=== PATIENT | male | born 1960 | race African-American/Black ===

== ENCOUNTER 2016-10-09 18:22 | Emergency (ER) | payer OTHER, MEDICARE ==
--- NOTE | 2016-10-09 18:31 | ER Document Report ---
ED Medical Screen (RME) - General Stated Complaint: URINARY PROBLEM Time seen by provider: 18:28 Mode of Arrival: Ambulatory Information source: Patient Notes: 56-year-old male presents to ED for blood in his urine starting today. He states he has some blood clots in his urine. States he has pressure with urination denies burning has frequency and urgency. Denies penile discharge. Denies history of kidney stones. States he feels bloated I have greeted and performed a rapid initial assessment of this patient. A comprehensive ED assessment and evaluation of the patient, analysis of test results and completion of medical decision making process will be conducted by an additional ED providers. TRAVEL OUTSIDE OF THE [place] IN LAST 30 DAYS: No - Related Data Allergies/Adverse Reactions: chlorzoxazone [From Parafon Forte] Allergy (Severe, Verified 10/09/16 18:24) Face swelled, couldn't breathe acetaminophen [From Percocet] Allergy (Intermediate, Verified 10/09/16 18:24) Hives oxycodone HCl [From Percocet] Allergy (Unknown, Verified 10/09/16 18:24) Past Medical History - Past Medical History Cardiac Medical History: Reports: Hx Hypertension, Hx Heart Murmur Denies: Hx Congestive Heart Failure, Hx Coronary Artery Disease, Hx Heart Attack Pulmonary Medical History: Reports: Hx Asthma - As a child Denies: Hx Bronchitis, Hx COPD, Hx Pneumonia Neurological Medical History: Denies: Hx Cerebrovascular Accident, Hx Seizures GI Medical History: Musculoskeltal Medical History: Reports Hx Arthritis Infectious Medical History: Past Surgical History: Reports: Hx Orthopedic Surgery - bilateral knee replacement. Denies: Hx Pacemaker - Immunizations Hx Diphtheria, Pertussis, Tetanus Vaccination: Yes
[2016-10-09 18:49] LABS: ABSOLUTE EOSINOPHILS # (AUTO) 0.1 10^3/uL (0.0-0.6); ABSOLUTE MONOCYTES (AUTO) 0.4 10^3/uL (0.1-1.4); ABSOLUTE NEUT (AUTO) 3.4 10^3/uL (1.7-8.2); BASOPHILS % (AUTO) 0.7 % (0-2); HEMATOCRIT 41.6 % (37.9-51.0); HEMOGLOBIN 13.7 g/dL (13.5-17.0); HGB HCT DIFFERENCE -0.5; LYMPHOCYTES % (AUTO) 34.1 % (13-45); MEAN CORPUSCULAR HEMOGLOBIN 28.7 pg (27.0-33.4); MEAN CORPUSCULAR HGB CONC 32.8 g/dL (32.0-36.0); MEAN CORPUSCULAR VOLUME 87 fl (80-97); MONOCYTES % (AUTO) 6.7 % (3-13); RED BLOOD COUNT 4.77 10^6/uL (4.35-5.55); RED CELL DISTRIBUTION WIDTH 14.3 % (11.5-14.0); SEGMENTED NEUTROPHILS % (AUTO) 56.5 % (42-78); WHITE BLOOD COUNT 5.9 10^3/uL (4.0-10.5)
[2016-10-09 19:06] LABS: ALANINE AMINOTRANSFERASE 27 U/L (21-72); ALKALINE PHOSPHATASE 74 U/L (38-126); ANION GAP 11 (5-19); ASPARTATE AMINO TRANSFERASE 21 U/L (17-59); BILIRUBIN,TOTAL 0.3 mg/dL (0.2-1.3); BLOOD UREA NITROGEN 12 mg/dL (7-20); CALCIUM 9.6 mg/dL (8.4-10.2); CARBON DIOXIDE 27 mmol/L (22-30); CHLORIDE 104 mmol/L (98-107); GLUCOSE 216 mg/dL (75-110); POTASSIUM 4.1 mmol/L (3.6-5.0); SODIUM 141.5 mmol/L (137-145); TOTAL PROTEIN 7.1 g/dL (6.3-8.2)
--- NOTE | 2016-10-09 19:33 | ER Document Report ---
ED GI/ - General Chief Complaint: Urinary Problem Stated Complaint: URINARY PROBLEM Time seen by provider: 19:31 Mode of Arrival: Ambulatory Notes: Patient is a 56-year-old male that comes emergency department with chief complaint of blood in his urine that he noticed today, he states he thought he saw a couple of clots in the toilet as well, he states he has some pressure in his lower belly. He denies flank pain, nausea or vomiting, fever or chills, painful urination. Patient states he has been evaluated by urology in the past for microscopic hematuria and had imaging which was normal, denies history of kidney stones, he is treated for BPH with Flomax. He smokes. Past medical history of type II diabetes. TRAVEL OUTSIDE OF THE [place] IN LAST 30 DAYS: No - Related Data Allergies/Adverse Reactions: chlorzoxazone [From Parafon Forte] Allergy (Severe, Verified 10/09/16 18:24) Face swelled, couldn't breathe acetaminophen [From Percocet] Allergy (Intermediate, Verified 10/09/16 18:24) Hives oxycodone HCl [From Percocet] Allergy (Unknown, Verified 10/09/16 18:24) Past Medical History - General Information source: Patient - Social History Smoking Status: Current Every Day Smoker Smoking Education Provided: Yes - <3 min Frequency of alcohol use: None Drug Abuse: None Lives with: Family Family History: Reviewed & Not Pertinent Patient has suicidal ideation: No Patient has homicidal ideation: No - Past Medical History Cardiac Medical History: Reports: Hx Hypercholesterolemia, Hx Hypertension, Hx Heart Murmur Denies: Hx Congestive Heart Failure, Hx Coronary Artery Disease, Hx Heart Attack Pulmonary Medical History: Reports: Hx Asthma - As a child Denies: Hx Bronchitis, Hx COPD, Hx Pneumonia Neurological Medical History: Denies: Hx Cerebrovascular Accident, Hx Seizures Endocrine Medical History: Reports: Hx Diabetes Mellitus Type 2 Renal/ Medical History: Denies: Hx Peritoneal Dialysis GI Medical History: Musculoskeltal Medical History: Reports Hx Arthritis Infectious Medical History: Past Surgical History: Reports: Hx Orthopedic Surgery - bilateral knee replacement. Denies: Hx Pacemaker - Immunizations Hx Diphtheria, Pertussis, Tetanus Vaccination: Yes Hx Pneumococcal Vaccination: 05/26/10 Review of Systems - Review of Systems Constitutional: No symptoms reported EENT: No symptoms reported Cardiovascular: No symptoms reported Respiratory: No symptoms reported Gastrointestinal: No symptoms reported Genitourinary: See HPI Male Genitourinary: No symptoms reported Musculoskeletal: No symptoms reported Skin: No symptoms reported Hematologic/Lymphatic: No symptoms reported Neurological/Psychological: No symptoms reported Physical Exam - Vital signs Vitals: Temp Pulse Resp BP Pulse Ox 97.7 F 105 H 20 172/95 H 96 10/09/16 18:29 10/09/16 18:29 10/09/16 18:29 10/09/16 18:29 10/09/16 18:29 Interpretation: Normal - General General appearance: Appears well, Alert In distress: None - HEENT Head: Normocephalic, Atraumatic Eyes: Normal Conjunctiva: Normal Extraocular movements intact: Yes Eyelashes: Normal Pupils: PERRL Nasal: Normal Mouth/Lips: Normal Mucous membranes: Normal Pharynx: Normal Neck: Normal - Respiratory Respiratory status: No respiratory distress Chest status: Nontender Breath sounds: Normal. No: Decreased air movement, Wheezing Chest palpation: Normal - Cardiovascular Rhythm: Regular. No: Tachycardia - No tachycardia on my exam Heart sounds: Normal auscultation, S1 appreciated, S2 appreciated Murmur: No - Abdominal Inspection: Normal Distension: No distension Bowel sounds: Normal Tenderness: Tender - Very slight generalized lower abdominal discomfort, no significant tenderness, no guarding - Back Back: Normal, Nontender. No: CVA tenderness - Extremities General upper extremity: Normal inspection, Nontender, Normal color, Normal ROM , Normal temperature General lower extremity: Normal inspection, Nontender, Normal color, Normal ROM , Normal temperature, Normal weight bearing. 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 No fever. CBC unremarkable, chemistry generally unremarkable with only mildly elevated glucose, bicarbonate and anion gap are normal, urinalysis shows what appears to be large amount of hematuria with no nitrates or evidence of infection. I discussed with patient, patient states he has not had a CAT scan to evaluate for stones or other abnormality. This was performed after discussion, discussed with Dr. Davenport per [facility] guidelines. No ureterolithiasis, renal cysts , masses, or other abnormalities are seen. Patient heart he has a urologist, patient was given a copy of his CD and report, discussed with patient in detail , patient states that he will follow-up closely and will likely have a cystoscopy for additional evaluation (patient is a smoker, concern for bladder cancer, informed patient of this and he states understanding and that he will follow-up closely). Patient hypertensive, however he states he forgot to take his blood pressure medication today, denies headache, chest pain, difficulty urinating. States he will take it at home. - Vital Signs Vital signs: Temp Pulse Resp BP Pulse Ox 97.7 F 87 16 153/100 H 95 10/09/16 22:27 10/09/16 22:27 10/09/16 22:27 10/09/16 22:27 10/09/16 22:27 - Laboratory Result Diagrams: 10/09/16 18:36 10/09/16 18:36 Laboratory results interpreted by me: 10/09/16 10/09/16 10/09/16 18:36 18:36 18:36 RDW 14.3 H Glucose 216 H Urine Protein 30 H Urine Glucose (UA) 50 H Urine Blood LARGE H Discharge - Discharge Clinical Impression: Hematuria Condition: Stable Disposition: HOME, SELF-CARE Additional Instructions: CAT scan imaging shows no abnormalities, no infection is seen, a urine culture has been sent. Because of the lower abdominal discomfort, increase in bleeding, and no other source of bleeding found, please follow-up very closely with your urologist for additional management/screening. Return to the emergency department for any concerning or worsening symptoms including fever, vomiting, dizziness, etc. Referrals: DIXIE LIND MD [Primary Care Provider] - Follow up as needed
[2016-10-09 19:35] LABS: APPEARANCE,URINE CLOUDY; BILIRUBIN,URINE NEGATIVE (NEGATIVE); GLUCOSE, URINE 50 mg/dL (NEGATIVE); KETONES,URINE NEGATIVE (NEGATIVE); LEUKOCYTE ESTERASE,URINE NEGATIVE (NEGATIVE); NITRITE,URINE NEGATIVE (NEGATIVE); PROTEIN,URINE 30 mg/dL (NEGATIVE); UROBILINOGEN,URINE NEGATIVE mg/dL (<2.0)
[2016-10-09 22:31] VITALS: BP 153/100
== END 2016-10-09 22:29 | disposition home or self-care (01) ==
LOC: ER 18:22
DX: R31.0 Gross hematuria (principal); R19.8 Other specified symptoms and signs involving the digestive system and abdomen; N40.0 Benign prostatic hyperplasia without lower urinary tract symptoms; E11.9 Type 2 diabetes mellitus without complications; I10 Essential (primary) hypertension; F17.200 Nicotine dependence, unspecified, uncomplicated; Z71.6 Tobacco abuse counseling; Z88.5 Allergy status to narcotic agent; Z88.8 Allergy status to other drugs, medicaments and biological substances; Z79.899 Other long term (current) drug therapy
CPT/HCPCS: 36415; 76380; 80053; 81001; 85025; 87086; 99284

== ENCOUNTER 2016-10-13 11:13 | Emergency (ER) | payer MEDICARE ==
--- NOTE | 2016-10-13 11:22 | ER Document Report ---
ED Medical Screen (RME) - General Stated Complaint: COUGH Mode of Arrival: Ambulatory Information source: Patient Notes: Patient complains of cough and fever with rib pain. Patient complains of chest and generalized abdominal tenderness. Temperature as high as 101. Cough started yesterday. hx: Diabetes, hypertension, dyslipidemia, COPD, asthma I have greeted and performed a rapid initial assessment of this patient. A comprehensive ED assessment and evaluation of the patient, analysis of test results and completion of the medical decision making process will be conducted by additional ED providers. TRAVEL OUTSIDE OF THE [place] IN LAST 30 DAYS: No - Related Data Allergies/Adverse Reactions: chlorzoxazone [From Parafon Forte] Allergy (Severe, Verified 10/13/16 11:18) Face swelled, couldn't breathe acetaminophen [From Percocet] Allergy (Intermediate, Verified 10/13/16 11:18) Hives oxycodone HCl [From Percocet] Allergy (Unknown, Verified 10/13/16 11:18) Past Medical History - Past Medical History Cardiac Medical History: Reports: Hx Hypercholesterolemia, Hx Hypertension, Hx Heart Murmur Denies: Hx Congestive Heart Failure, Hx Coronary Artery Disease, Hx Heart Attack Pulmonary Medical History: Reports: Hx Asthma - As a child Denies: Hx Bronchitis, Hx COPD, Hx Pneumonia Neurological Medical History: Denies: Hx Cerebrovascular Accident, Hx Seizures Endocrine Medical History: Reports: Hx Diabetes Mellitus Type 2 Renal/ Medical History: Denies: Hx Peritoneal Dialysis GI Medical History: Musculoskeltal Medical History: Reports Hx Arthritis Infectious Medical History: Past Surgical History: Reports: Hx Orthopedic Surgery - bilateral knee replacement. Denies: Hx Pacemaker - Immunizations Hx Diphtheria, Pertussis, Tetanus Vaccination: Yes Physical Exam - Respiratory Respiratory status: No respiratory distress Breath sounds: Nonproductive cough
--- NOTE | 2016-10-13 11:46 | ER Document Report ---
ED General - General Chief Complaint: Cough Stated Complaint: COUGH Time seen by provider: 11:46 Mode of Arrival: Ambulatory Information source: Patient TRAVEL OUTSIDE OF THE [place] IN LAST 30 DAYS: No - HPI Patient complains to provider of: COUGH, CONGESTION, FEVER Onset: Other - SATURDAY Onset/Duration: Gradual, Worse Quality of pain: Achy Severity: Moderate Pain Level: 4 Context: Patient states that his cold symptoms actually started this past Saturday. He has been running a fever, and states his symptoms have been worse since . States his upper abdomen hurts from coughing so much. Patient states he has a history of asthma, COPD, hypertension, diabetes type II, and pneumonia. He has a current smoker. He did not receive a flu shot this year. Patient denies chest pain, except with coughing. Associated symptoms: Chills, Nonproductive cough, Fever, Hurts to breath, Shortness of breath, Other - UPPER ABD PAIN FROM COUGHING. denies: Chest pain, Diarrhea, Nausea, Vomiting Exacerbated by: Coughing Relieved by: Denies Similar symptoms previously: Yes - HX PNEUMONIA Recently seen / treated by doctor: No Notes: When discussing in further detail patient's history due to elevated CK, patient admits to taking statins. He states that he has been having muscle cramps for the last 3 weeks. He also admits to having a history of sleep apnea in which he is not wearing his CPAP. Again patient denies he is having chest pain. He does state that he had episodes of chest pain about 3 years ago. And underwent a stress test [place]. He states that he is a former cocaine user, quit about 8 or 9 years ago, and was put on carvedilol to help control his heart rate - Related Data Allergies/Adverse Reactions: chlorzoxazone [From Parafon Forte] Allergy (Severe, Verified 10/13/16 11:18) Face swelled, couldn't breathe acetaminophen [From Percocet] Allergy (Intermediate, Verified 10/13/16 11:18) Hives oxycodone HCl [From Percocet] Allergy (Unknown, Verified 10/13/16 11:18) Home Medications: Current Home Medications Aspirin [Aspirin EC] 2 tab PO DAILY 10/13/16 [History] Finasteride [Finasteride] 1 tab PO DAILY 10/13/16 [History] Lisinopril 20 mg PO DAILY 10/13/16 [History] Tamsulosin HCl [Flomax] 0.4 mg PO DAILY 10/13/16 [History] Past Medical History - General Information source: Patient - Social History Smoking Status: Current Every Day Smoker Chew tobacco use (# tins/day): No Frequency of alcohol use: None Drug Abuse: None Lives with: Spouse/Significant other Family History: Reviewed & Not Pertinent Patient has suicidal ideation: No Patient has homicidal ideation: No - Past Medical History Cardiac Medical History: Reports: Hx Hypercholesterolemia, Hx Hypertension, Hx Heart Murmur Pulmonary Medical History: Reports: Hx Asthma - As a child, Hx COPD, Hx Pneumonia, Hx Sleep Apnea Endocrine Medical History: Reports: Hx Diabetes Mellitus Type 2 GI Medical History: Musculoskeltal Medical History: Reports Hx Arthritis Infectious Medical History: Past Surgical History: Reports: Hx Orthopedic Surgery - bilateral knee replacement - Immunizations Hx Diphtheria, Pertussis, Tetanus Vaccination: Yes Hx Pneumococcal Vaccination: 05/26/10 Review of Systems - Review of Systems Constitutional: See HPI EENT: See HPI Cardiovascular: No symptoms reported Respiratory: See HPI Gastrointestinal: See HPI Genitourinary: No symptoms reported Male Genitourinary: No symptoms reported Musculoskeletal: No symptoms reported Skin: No symptoms reported Hematologic/Lymphatic: No symptoms reported Neurological/Psychological: No symptoms reported -: Yes All other systems reviewed and negative Physical Exam - Vital signs Vitals: Temp Pulse Resp BP Pulse Ox 98.9 F 107 H 18 175/126 H 95 10/13/16 11:20 10/13/16 11:20 10/13/16 11:20 10/13/16 11:20 10/13/16 11:20 - General General appearance: Appears well, Alert In distress: None - HEENT Head: Normocephalic Eyes: Normal Conjunctiva: Normal Pharynx: Normal Neck: Normal - Respiratory Respiratory status: No respiratory distress Breath sounds: Decreased air movement, Wheezing - Cardiovascular Rhythm: Regular Heart sounds: Normal auscultation - Abdominal Inspection: Normal Bowel sounds: Normal Tenderness: Tender - UPPER ABDOMINAL MUSCLES - Back Back: Normal, Nontender - Extremities General upper extremity: Normal inspection General lower extremity: Normal inspection - Neurological Neuro grossly intact: Yes Cognition: Normal - Psychological Associated symptoms: Normal affect, Normal mood - Skin Skin Temperature: Warm Skin Moisture: Dry Skin Color: Normal Course - Re-evaluation Re-evalutation: 10/13/16 16:[address] SIN. REVIEWED PTS HX, LABS, AND OTHER TESTS. ADVISED THAT PATIENT STOP STATIN, PUSH FLUIDS, FOLLOW UP WITH PCP NEXT WEEK FOR RECHECK OF LABS OR RETURN TO ER IF NOT FEELING ANY BETTER. 10/13/16 16:58 Patient reevaluated at this time. Denies chest pain. Informed of plan of care , agrees to stop statins, and [facility] Patient also agrees to return to the ER for worsening symptoms or if no improvement in the next couple of days. - Vital Signs Vital signs: Temp Pulse Resp BP Pulse Ox 98.9 F 107 H 27 H 135/83 H 96 10/13/16 11:20 10/13/16 11:20 10/13/16 16:01 10/13/16 15:01 10/13/16 16:01 - Laboratory Result Diagrams: 10/13/16 12:50 10/13/16 12:50 Laboratory results interpreted by me: 10/13/16 10/13/16 10/13/16 12:50 12:50 14:00 RDW 14.1 H Seg Neutrophils % 79.1 H Lymphocytes % 11.5 L Glucose 142 H Creatine Kinase 1486 H Urine Blood MODERATE H Discharge - Discharge Clinical Impression: Cough Fever Qualifiers: Fever type: unspecified Qualified Code(s): R50.9 - Fever, unspecified Rhabdomyolysis Qualifiers: Rhabdomyolysis type: non-traumatic Qualified Code(s): M62.82 - Rhabdomyolysis Condition: Good Disposition: HOME, SELF-CARE Additional Instructions: Stop statin as discussed. Follow-up [place] [facility] the first of this coming week for recheck. Drink lots of water until [facility] Take antibiotics as prescribed. Albuterol inhaler every 4 hours for the next 2 days, then every 4 hours as needed for cough. Continue Symbicort twice daily as prescribed. Steroids twice daily for 3 days. Monitor blood sugar closely. [id number] sugar-free cough suppressants as needed. Return to the emergency room for worsening symptoms, or if not better in the next couple of days. Prescriptions: Doxycycline Hyclate 100 mg PO BID #20 tablet Hydrocodone/Acetaminophen [Sublette 5-325 mg Tablet] 1 tab PO Q6H #15 tablet Prednisone 20 mg PO BID #6 tablet Referrals: DIXIE LIND MD [Primary Care Provider] - Follow up as needed
[2016-10-13] MEDS ORDERED: ALBUTEROL SULFATE 0.083% NEB 2.5 MG/3 ML AMPUL NEB ONE (11:56)
[2016-10-13 13:12] LABS: HEMATOCRIT 41.8 % (37.9-51.0); HEMOGLOBIN 13.7 g/dL (13.5-17.0); HGB HCT DIFFERENCE -0.7; MEAN CORPUSCULAR HEMOGLOBIN 28.3 pg (27.0-33.4); MEAN CORPUSCULAR HGB CONC 32.7 g/dL (32.0-36.0); MEAN CORPUSCULAR VOLUME 87 fl (80-97); RED BLOOD COUNT 4.82 10^6/uL (4.35-5.55); RED CELL DISTRIBUTION WIDTH 14.1 % (11.5-14.0)
[2016-10-13 13:13] LABS: ABSOLUTE LYMPHOCYTES (AUTO) 0.7 10^3/uL (0.5-4.7); ABSOLUTE MONOCYTES (AUTO) 0.5 10^3/uL (0.1-1.4); ABSOLUTE NEUT (AUTO) 4.7 10^3/uL (1.7-8.2); BASOPHILS % (AUTO) 0.5 % (0-2); EOSINOPHILS % (AUTO) 0.5 % (0-6); LYMPHOCYTES % (AUTO) 11.5 % (13-45); MONOCYTES % (AUTO) 8.4 % (3-13); SEGMENTED NEUTROPHILS % (AUTO) 79.1 % (42-78)
[2016-10-13] MEDS ORDERED: HYDROCODONE/ACETAMINOPHEN 5-325 MG TABLET PO ONE (13:13)
[2016-10-13 13:47] LABS: CREATINE KINASE MB 1.25 ng/mL (<4.55); TROPONIN I < 0.012 ng/mL
[2016-10-13 14:00] LABS: ALANINE AMINOTRANSFERASE 29 U/L (21-72); ALBUMIN 3.8 g/dL (3.5-5.0); ALKALINE PHOSPHATASE 59 U/L (38-126); ANION GAP 11 (5-19); ASPARTATE AMINO TRANSFERASE 32 U/L (17-59); BILIRUBIN,TOTAL 0.5 mg/dL (0.2-1.3); BLOOD UREA NITROGEN 9 mg/dL (7-20); CALCIUM 9.2 mg/dL (8.4-10.2); CARBON DIOXIDE 25 mmol/L (22-30); CHLORIDE 103 mmol/L (98-107); CREATINE KINASE 1486 U/L (55-170); CREATININE RESULT 0.85 mg/dL (0.52-1.25); GLUCOSE 142 mg/dL (75-110); SODIUM 138.6 mmol/L (137-145); TOTAL PROTEIN 6.8 g/dL (6.3-8.2)
[2016-10-13] MEDS ORDERED: NORMAL SALINE 1000 ML 1,000 ML IV ONE (14:42)
[2016-10-13 14:48] LABS: APPEARANCE,URINE CLEAR; BILIRUBIN,URINE NEGATIVE (NEGATIVE); GLUCOSE, URINE NEGATIVE (NEGATIVE); KETONES,URINE NEGATIVE (NEGATIVE); LEUKOCYTE ESTERASE,URINE NEGATIVE (NEGATIVE); NITRITE,URINE NEGATIVE (NEGATIVE); PROTEIN,URINE NEGATIVE (NEGATIVE); URINE SPECIFIC GRAVITY 1.006; UROBILINOGEN,URINE NEGATIVE mg/dL (<2.0)
[2016-10-13] MEDS ORDERED: CEFTRIAXONE 1 GM/D5W RTU 50 ML IV ONE (16:13)
[2016-10-13] MEDS ORDERED: IPRATROPIUM/ALBUTEROL 0.5-2.5 MG/3 ML AMPUL NEB ONE (16:14)
[2016-10-13 17:17] VITALS: BP 118/72
[2016-10-13] MEDS ORDERED: ACETAMINOPHEN 325 MG TABLET PO ONE (17:25)
--- NOTE | 2016-10-13 18:39 | EKG REPORT ---
SEVERITY:- ABNORMAL ECG - SINUS TACHYCARDIA NONSPECIFIC T ABNORMALITIES, LATERAL LEADS : Confirmed by: Karla Galdamez 13-Oct-2016 18:38:57
== END 2016-10-13 17:36 | disposition home or self-care (01) ==
LOC: ER 11:13
DX: M62.82 Rhabdomyolysis (principal); R05 Cough; R50.9 Fever, unspecified; R09.81 Nasal congestion; F17.210 Nicotine dependence, cigarettes, uncomplicated; Z79.899 Other long term (current) drug therapy
CPT/HCPCS: 93005; 94640 ×2; 99284; 96365; 36415; 82553; 82550; 83690; 85025; 80053; 81001; 84484; 87804; 71020; 93010; A9270 ×4; J7030; J0696; J7620

== ENCOUNTER → 2016-10-16 | Outpatient (CLI) | payer MEDICARE | LOC: RAD 08:13 | PROVIDERS: ATTEND Urology | DX: R31.0 Gross hematuria (principal) | CPT/HCPCS: 74177 ==

== ENCOUNTER 2016-11-13 18:19 | Observation (INO) | payer OTHER, MEDICARE ==
--- NOTE | 2016-11-13 18:36 | ER Document Report ---
ED Medical Screen (RME) - General Stated Complaint: CHEST PAIN Notes: Patient complains of midsternal chest pain for 4-5 days. Feels like he has to burp but can't. No nausea or vomiting, no shortness of breath. No pain radiation. Patient states he has an irregular heartbeat. Patient has history of hypertension and high cholesterol. Patient is also diabetic, he is scheduled for hernia repair surgery on Saturday. Patient usually takes (2) 81 mg aspirin per day, but stopped it yesterday for his impending surgery. No aspirin given an RME. I have greeted and performed a rapid initial assessment of this patient. A comprehensive ED assessment and evaluation of the patient, analysis of test results and completion of the medical decision making process will be conducted by additional ED providers. TRAVEL OUTSIDE OF THE [place] IN LAST 30 DAYS: No - Related Data Allergies/Adverse Reactions: chlorzoxazone [From Parafon Forte] Allergy (Severe, Verified 11/13/16 18:34) Face swelled, couldn't breathe acetaminophen [From Percocet] Allergy (Intermediate, Verified 11/13/16 18:34) Hives oxycodone HCl [From Percocet] Allergy (Unknown, Verified 11/13/16 18:34) Past Medical History - Past Medical History Cardiac Medical History: Reports: Hx Hypercholesterolemia, Hx Hypertension, Hx Heart Murmur Denies: Hx Congestive Heart Failure, Hx Coronary Artery Disease, Hx Heart Attack Pulmonary Medical History: Reports: Hx Asthma - As a child, Hx COPD, Hx Pneumonia, Hx Sleep Apnea Denies: Hx Bronchitis Neurological Medical History: Denies: Hx Cerebrovascular Accident, Hx Seizures Endocrine Medical History: Reports: Hx Diabetes Mellitus Type 2 Renal/ Medical History: Denies: Hx Peritoneal Dialysis GI Medical History: Musculoskeltal Medical History: Reports Hx Arthritis Infectious Medical History: Past Surgical History: Reports: Hx Orthopedic Surgery - bilateral knee replacement. Denies: Hx Pacemaker - Immunizations Hx Diphtheria, Pertussis, Tetanus Vaccination: Yes Physical Exam - Vital signs Vitals: Temp Pulse Resp BP Pulse Ox 98.9 F 101 H 16 158/93 H 96 11/13/16 18:31 11/13/16 18:31 11/13/16 18:31 11/13/16 18:31 11/13/16 18:31 - Cardiovascular Rhythm: Regular Heart sounds: Normal auscultation Course - Vital Signs Vital signs: Temp Pulse Resp BP Pulse Ox 98.9 F 101 H 16 158/93 H 96 11/13/16 18:31 11/13/16 18:31 11/13/16 18:31 11/13/16 18:31 11/13/16 18:31
[2016-11-13 19:04] LABS: PROTHROMBIN TIME 12.8 SEC (11.4-15.4)
[2016-11-13 19:06] LABS: APPEARANCE,URINE CLEAR; BILIRUBIN,URINE NEGATIVE (NEGATIVE); GLUCOSE, URINE 150 mg/dL (NEGATIVE); KETONES,URINE TRACE mg/dL (NEGATIVE); LEUKOCYTE ESTERASE,URINE NEGATIVE (NEGATIVE); NITRITE,URINE NEGATIVE (NEGATIVE); PROTEIN,URINE NEGATIVE (NEGATIVE); URINE SPECIFIC GRAVITY 1.018; UROBILINOGEN,URINE NEGATIVE mg/dL (<2.0)
[2016-11-13 19:09] LABS: ABSOLUTE BASOPHILS # (AUTO) 0.1 10^3/uL (0.0-0.2); ABSOLUTE EOSINOPHILS # (AUTO) 0.2 10^3/uL (0.0-0.6); ABSOLUTE MONOCYTES (AUTO) 0.9 10^3/uL (0.1-1.4); ABSOLUTE NEUT (AUTO) 6.8 10^3/uL (1.7-8.2); BASOPHILS % (AUTO) 0.6 % (0-2); EOSINOPHILS % (AUTO) 1.8 % (0-6); HEMATOCRIT 38.7 % (37.9-51.0); HEMOGLOBIN 13.1 g/dL (13.5-17.0); HGB HCT DIFFERENCE 0.6; LYMPHOCYTES % (AUTO) 20.1 % (13-45); MEAN CORPUSCULAR HGB CONC 33.8 g/dL (32.0-36.0); MEAN CORPUSCULAR VOLUME 86 fl (80-97); MONOCYTES % (AUTO) 8.7 % (3-13); RED BLOOD COUNT 4.51 10^6/uL (4.35-5.55); RED CELL DISTRIBUTION WIDTH 14.3 % (11.5-14.0); SEGMENTED NEUTROPHILS % (AUTO) 68.8 % (42-78); WHITE BLOOD COUNT 9.9 10^3/uL (4.0-10.5)
[2016-11-13 19:18] LABS: ALANINE AMINOTRANSFERASE 21 U/L (21-72); ALBUMIN 4.1 g/dL (3.5-5.0); ALKALINE PHOSPHATASE 74 U/L (38-126); ANION GAP 14 (5-19); ASPARTATE AMINO TRANSFERASE 21 U/L (17-59); BILIRUBIN,DIRECT 0.2 mg/dL (0.0-0.4); BILIRUBIN,TOTAL 0.3 mg/dL (0.2-1.3); BLOOD UREA NITROGEN 17 mg/dL (7-20); CALCIUM 9.4 mg/dL (8.4-10.2); CARBON DIOXIDE 22 mmol/L (22-30); CHLORIDE 110 mmol/L (98-107); CREATINE KINASE 279 U/L (55-170); CREATININE RESULT 0.93 mg/dL (0.52-1.25); GLUCOSE 114 mg/dL (75-110); LIPASE 113.3 U/L (23-300); POTASSIUM 4.2 mmol/L (3.6-5.0); SODIUM 146.3 mmol/L (137-145); TOTAL PROTEIN 6.7 g/dL (6.3-8.2)
[2016-11-13 19:29] LABS: CREATINE KINASE MB 1.45 ng/mL (<4.55)
[2016-11-13 19:30] LABS: TROPONIN I < 0.012 ng/mL
--- NOTE | 2016-11-13 20:57 | ER Document Report ---
ED Cardiac - General Mode of Arrival: Ambulatory Information source: Patient TRAVEL OUTSIDE OF THE [place] IN LAST 30 DAYS: No - HPI Patient complains to provider of: Chest tightness - "pressure" Chest pain location: Substernal Chest pain radiation location: None Cardiac risk factors: Diabetes, Hypertension. denies: Hx RI Associated symptoms: Other - See HPI Exacerbated by: Denies Relieved by: Nothing <SLADE ARIAS - Last Filed: 11/13/16 21:30> <MARIA T BATISTA - Last Filed: 11/13/16 22:33> - General Chief Complaint: Chest Pain Stated Complaint: CHEST PAIN Notes: 56 year old male with history of diabetes, hypertension, arrhythmia, and COPD presents to the ED complaining of intermittent substernal pressure which does not radiate that started 4-5 days ago. Patient reports that it feels like if he "burped" he would relieve the pressure. Patient explains that the pressure was worse when waiting for a room, but is not less severe. Patient explains that these intermittent episodes will often last hours at a time. Patient reports that nothing makes it worse or better and he has not noticed any change with breathing. Patient denies any nausea. Patient has had two stress tests performed in the past, but it has been "a while." Patient usually takes aspirin , but has since stopped taking it because of scheduled surgery in 3 days for hiatal and umbilical hernia repair. Patient's primary care provider is Dr. Gilliland. (SLADE ARIAS) - Related Data Allergies/Adverse Reactions: chlorzoxazone [From Parafon Forte] Allergy (Severe, Verified 11/13/16 18:34) Face swelled, couldn't breathe acetaminophen [From Percocet] Allergy (Intermediate, Verified 11/13/16 18:34) Hives oxycodone HCl [From Percocet] Allergy (Unknown, Verified 11/13/16 18:34) Home Medications: Current Home Medications Hydrocodone/Acetaminophen [[place] 5-325 mg Tablet] 1 tab PO TIDP PRN 11/13/16 [ History] Ramipril [Ramipril] 10 mg PO DAILY 11/13/16 [History] Past Medical History - General Information source: Patient - Social History Smoking Status: Current Every Day Smoker Chew tobacco use (# tins/day): No Frequency of alcohol use: None Drug Abuse: None Family History: Reviewed & Not Pertinent Patient has suicidal ideation: No Patient has homicidal ideation: No - Past Medical History Cardiac Medical History: Reports: Hx Hypercholesterolemia, Hx Hypertension, Hx Heart Murmur, Other - arrythmia Pulmonary Medical History: Reports: Hx Asthma - As a child, Hx COPD, Hx Pneumonia, Hx Sleep Apnea Endocrine Medical History: Reports: Hx Diabetes Mellitus Type 2 Renal/ Medical History: Denies: Hx Peritoneal Dialysis GI Medical History: Musculoskeltal Medical History: Reports Hx Arthritis Infectious Medical History: Past Surgical History: Reports: Hx Orthopedic Surgery - bilateral knee replacement - Immunizations Hx Diphtheria, Pertussis, Tetanus Vaccination: Yes Hx Pneumococcal Vaccination: 05/26/10 <SLADE ARIAS - Last Filed: 11/13/16 21:30> Review of Systems - Review of Systems Constitutional: No symptoms reported EENT: No symptoms reported Cardiovascular: See HPI, Chest pain - "pressure" Respiratory: No symptoms reported Gastrointestinal: No symptoms reported. denies: Nausea Genitourinary: No symptoms reported Male Genitourinary: No symptoms reported Musculoskeletal: No symptoms reported Skin: No symptoms reported Hematologic/Lymphatic: No symptoms reported Neurological/Psychological: No symptoms reported -: Yes All other systems reviewed and negative <SLADE ARIAS - Last Filed: 11/13/16 21:30> Physical Exam - General General appearance: Alert In distress: None - HEENT Head: Normocephalic, Atraumatic Eyes: Normal Extraocular movements intact: Yes Pupils: PERRL - Respiratory Respiratory status: No respiratory distress Chest status: Tender Breath sounds: Normal Chest palpation: Tender - reproducible chest wall tenderness to palpation - Cardiovascular Rhythm: Regular Heart sounds: Normal auscultation - Abdominal Inspection: Normal Distension: No distension Bowel sounds: Normal Tenderness: Nontender. No: Doshi's sign - Back Back: Normal - Extremities General upper extremity: Normal inspection, Normal ROM General lower extremity: Normal inspection, Edema - trace pitting edema, Normal ROM - Neurological Neuro grossly intact: Yes Cognition: Normal Orientation: AAOx4 Maria De Jesus Coma Scale Eye Opening: Spontaneous Mcmillan Coma Scale Verbal: Oriented Mcmillan Coma Scale Motor: Obeys Commands Mcmillan Coma Scale Total: 15 Speech: Normal - Psychological Associated symptoms: Normal affect, Normal mood - Skin Skin Temperature: Warm Skin Moisture: Dry Skin Color: Normal <SLADE ARIAS - Last Filed: 11/13/16 21:30> Course - Laboratory Result Diagrams: 11/13/16 18:40 11/13/16 18:40 <SLADE ARIAS - Last Filed: 11/13/16 21:30> - Laboratory Result Diagrams: 11/13/16 18:40 11/13/16 18:40 - EKG Interpretation by Me EKG shows normal: Sinus rhythm Rate: Tachycardia [place]/QRS: No: IVCD Heart block present: No: 1st Degree, Mobitz 1, Mobitz 2, CHB (3rd degree block) <MARIA T BATISTA - Last Filed: 11/13/16 22:33> - Vital Signs Vital signs: Temp Pulse Resp BP Pulse Ox 98.9 F 101 H 16 135/80 H 97 11/13/16 18:31 11/13/16 18:31 11/13/16 20:34 11/13/16 20:34 11/13/16 20:34 - Laboratory Laboratory results interpreted by me: 11/13/16 11/13/16 11/13/16 18:40 18:40 18:40 Hgb 13.1 L RDW 14.3 H Sodium 146.3 H Chloride 110 H Glucose 114 H Creatine Kinase 279 H Urine Glucose (UA) 150 H Urine Ketones TRACE H Urine Blood SMALL H - EKG Interpretation by Me Additional EKG results interpreted by me: 11/13/16 21:[address]/T flattening (MARIA T BATISTA) Discharge <SLADE ARIAS - Last Filed: 11/13/16 21:30> - Discharge Admitting Provider: [facility] Unit Admitted: Telemetry <MARIA T BATISTA - Last Filed: 11/13/16 22:33> - Discharge Clinical Impression: Chest pain Condition: Fair Disposition: ADMITTED OBSERVATION Scribe Attestation: 11/13/16 22:32 I personally performed the services described in the documentation, reviewed and edited the documentation which was dictated to the scribe in my presence, and it accurately records my words and actions. (MARIA T BATISTA) Scribe Documentation - Scribe Written by Scribe:: Fredy Pritchett, [id number] acting as scribe for :: Mirlande <SLADE ARIAS - Last Filed: 11/13/16 21:30>
[2016-11-13] MEDS ORDERED: NITROGLYCERIN 2% OINTMENT 1 GM PACKET TP ONE (21:11)
[2016-11-13 22:17] LABS: URINE BARBITURATES SCREEN NEGATIVE; URINE METHADONE SCREEN NEGATIVE; URINE OPIATES LOW NEGATIVE; URINE PHENCYCLIDINE SCREEN NEGATIVE
[2016-11-14] MEDS ORDERED: DEXTROSE 40% GEL 15 GM TUBE X 2 PO PRN (01:00)
[2016-11-14] MEDS ORDERED: DEXTROSE 40% GEL 15 GM TUBE PO PRN (01:00)
[2016-11-14] MEDS ORDERED: DEXTROSE 50%-WATER SYRINGE 12.5 GM/25 ML DOSE IV PRN (01:00)
[2016-11-14] MEDS ORDERED: GLUCAGON,HUMAN RECOMB 1 MG INJ IM PRN (01:00)
[2016-11-14] MEDS ORDERED: INSULIN LISPRO 100 UNIT/ML 3 ML VIAL SUBCUT PRN (01:00)
[2016-11-14] MEDS ORDERED: DEXTROSE 50%-WATER SYRINGE 25 GM/50 ML DOSE IV PRN (01:00)
[2016-11-14] MEDS ORDERED: HYDROCODONE/ACETAMINOPHEN 5-325 MG TABLET PO PRN (01:05)
[2016-11-14 01:59] LABS: CREATINE KINASE MB 1.35 ng/mL (<4.55)
[2016-11-14 02:08] LABS: TROPONIN I < 0.012 ng/mL
[2016-11-14 07:50] LABS: CREATINE KINASE MB 1.44 ng/mL (<4.55)
[2016-11-14 07:54] LABS: TROPONIN I < 0.012 ng/mL
--- NOTE | 2016-11-14 08:32 | EKG REPORT ---
SEVERITY:- ABNORMAL ECG - SINUS TACHYCARDIA NONSPECIFIC T ABNORMALITIES, LATERAL LEADS : Confirmed by: Tony Israel MD 14-Nov-2016 08:32:28
[2016-11-14] MEDS ORDERED: NORMAL SALINE 1000 ML 1,000 ML IV PRN (08:53)
[2016-11-14] MEDS ORDERED: NITROGLYCERIN 0.4 MG/TAB 25 TAB/BOTTLE SL PRN (08:55)
[2016-11-14] MEDS ORDERED: ENOXAPARIN SODIUM INJ 40 MG/0.4 ML DISP.SYRIN SUBCUT SCH (10:00)
[2016-11-14] MEDS ORDERED: TAMSULOSIN HCL 0.4 MG CAP.SR.24H PO SCH (10:00)
[2016-11-14] MEDS ORDERED: GLIPIZIDE XL 2.5 MG TAB.ER.24 PO SCH (10:00)
[2016-11-14] MEDS ORDERED: RAMIPRIL 10 MG CAPSULE PO SCH (10:00)
[2016-11-14] MEDS ORDERED: LANSOPRAZOLE 30 MG TAB.RAP.DR PO SCH (10:00)
[2016-11-14] MEDS: METFORMIN HCL 500 MG TABLET PO SCH ×2 (10:09→18:18)
[2016-11-14] MEDS ORDERED: REGADENOSON INJ 0.4 MG/5 ML DISP.SYRIN IV ONE (12:16)
[2016-11-14] MEDS ORDERED: AMINOPHYLLINE INJ/PF 250 MG/10 ML SDV IV ONE (12:16)
[2016-11-14 14:48] LABS: CREATINE KINASE MB 1.28 ng/mL (<4.55)
[2016-11-14 14:52] LABS: TROPONIN I < 0.012 ng/mL
--- NOTE | 2016-11-14 16:52 | DRAGON STRESS TEST REPORT ---
INTRAVENOUS LEXISCAN CARDIOLITE STRESS TEST USING SINGLE PHOTON EMMISION COMPUTERIZED TOMOGRAPHIC. DATE OF PROCEDURE: November 14, 2016 INDICATION : Chest pain CARDIAC RISK FACTORS: Diabetes, hypertension, dyslipidemia RESTING EKG: Sinus rhythm, without any baseline ST segment changes STRESS EKG: No significant changes noted with LexiScan bolus REASON FOR TERMINATION: Protocol. PROCEDURE REPORT: Baseline heart rate 86 beats per minute with blood pressure of 122/72. Patient had no significant complaints. Heart rate at 2 minutes post bolus 108 with a blood pressure of 130/69. 3 minutes post bolus heart rate 93 with blood pressure of 125/68. No significant EKG changes were noted. Patient had no significant complaints during the procedure or postprocedure. CONCLUSIONS: Normal EKG and hemodynamic response to IV LexiScan. NUCLEAR DATA: At rest the patient was given 13.91 millicuries of technetium 99 sestamibi injected intravenously. As per protocol rest gated SPECT images were obtained. Subsequently the patient was given intravenous LexiScan at a dose of 0.4 mg in 5 mL intravenously, followed by flush with normal saline. Subsequently the stress dose of 44.1 millicuries of technetium 99 sestamibi was injected intravenously. As per protocol stress gated images were obtained. NUCLEAR INTERPRETATION: Both raw and processed data were used for interpretation. Visual, qualitative, computer-generated quantitative data was used. There was good myocardial uptake of technetium compound. Motion artifact and soft tissue attenuations were noted. Increased visceral uptake was noted. No definitive areas of transient perfusion defect noted. No definitive areas of fixed perfusion defect or scars noted. EKG gated imaging showed LV EF at 41 %, rest and stress gated EF similar visually. T. I D. ratio was 1.27, this is borderline increased. Lung heart ratio noted to be within normal limits at 0.26. Significant for retrocardiac abnormal radiotracer activities were noted consistent with possible hiatal hernia. RV free wall uptake was noted to be increased. LVH noted. IMPRESSION: Also refer to comments under nuclear interpretation. Also test results needs to be interpreted in the context of pretest probability. 1. There is no definitive scintigraphic evidence of LexiScan induced myocardial ischemia. 2. There is no definitive scintigraphic evidence of myocardial infarction/scar. 3. EKG gated imaging shows left ejection fraction of approximately 41 %. LVH noted. 4. Borderline transient ischemic dilatation noted. This is of uncertain significance in the absence of definitive perfusion abnormalities. 5. RV free wall uptake noted to be increased indicative of right ventricular enlargement/hypertrophy. 6. Retrocardiac technetium uptake was noted most likely related to hiatal hernia, may consider further evaluation. Clinical correlation requested as occasionally single vessel disease or balanced ischemia could be missed. In approximately 10% of the cases Lexiscan may not cause adequate vasodilatory stress. RECOMMENDATIONS: Aggressive risk factor modification, medical therapy. Clinical correlation with echocardiogram derived ejection fraction. Inability to exercise by itself can lead to increased cardiovascular event risks. Consider cardiology consultation and or follow-up if clinically indicated. I AM AVAILABLE FOR CARDIOLOGY CONSULTATION AND FOLLOWUP IF REQUESTED BY PMD Karla Galdamez M.D., GU[employer] Helper director hospice operations, Board certified in cardiovascular diseases, Nuclear cardiology, Echocardiography Cardiac CT and cardiac MRI Ph. [phone] [facility] CENTERJuan Pablo
--- NOTE | 2016-11-14 18:44 | PDOC H&P ---
History of Present Illness Admission Date/PCP: 11/14/16 00:30 [facility] Patient complains of: Chest pain History of Present Illness: ROSALIO HOWELL is a 56 year old male known to my practice who presented to ED with complain of intermittent chest pain over last 5 days. He described pain as pressure like in character and localized to substernal region. Pain is non radiating, no associated diaphoresis, palpitation, nausea, or vomiting. Patient felt as if there is difficulty with burping and belching did improve pain slightly. Episodes lasted about 1 month. Patient reported holding off on his Aspirin due to schedule hernia and umbilical hernia repairs. His comorbidities include diabetes mellitus type 2, HTN, HLD, COPD, and GERD. In view of his presentation and comorbidities he was advised hospitalization on observation status for rule out ACS. Past Medical History Cardiac Medical History: Reports: Hyperlipidema, Hypertension, Heart Murmur, Other - arrythmia Denies: Congestive Heart Failure, Coronary Artery Disease, Myocardial Infarction Pulmonary Medical History: Reports: Asthma - As a child, Chronic Obstructive Pulmonary Disease (COPD), Pneumonia, Sleep Apnea Denies: Bronchitis Neurological Medical History: Denies: Seizures Endocrine Medical History: Reports: Diabetes Mellitus Type 2 GI Medical History: Reports: Hiatal Hernia Musculoskeltal Medical History: Reports: Arthritis Hematology: Denies: Anemia Past Surgical History Past Surgical History: Reports: Orthopedic Surgery - bilateral knee replacement Denies: Pacemaker Social History Smoking Status: Current Every Day Smoker Cigarettes Packs Per Day: 0.5 Last Time Smoked: 11/13/16 Frequency of Alcohol Use: Occasional Hx Recreational Drug Use: No Drugs: None Hx Prescription Drug Abuse: No - Advance Directive Resuscitation Status: Full Code Family History Family History: Reviewed & Not Pertinent Parental Family History Reviewed: Yes Children Family History Reviewed: Yes Sibling(s) Family History Reviewed.: Yes Medication/Allergy Home Medications: Aspirin [Aspirin EC] 81 mg PO DAILY 11/14/16 Carvedilol [Coreg 3.125 mg Tablet] 3.125 mg PO Q12 11/14/16 Finasteride [Proscar 5 mg Tablet] 5 mg PO DAILY 11/14/16 Glipizide [Glocotrol 10 Mg Tablet] 10 mg PO BID 11/14/16 Hydrocodone Bit/Acetaminophen [Hydrocodon-Acetaminophen 5-325] 1 each PO Q8HP PRN 11/14/16 Lisinopril [Zestril] 10 mg PO DAILY 11/14/16 Metformin HCl [Glucophage] 1,000 mg PO BID 11/14/16 Ramipril [Altace 10 mg Capsule] 10 mg PO DAILY 11/14/16 Simvastatin [Zocor 20 mg Tablet] 20 mg PO QHS 11/14/16 Tamsulosin HCl [Flomax 0.4 mg Cap.sr] 0.4 mg PO DAILY 11/14/16 Allergies/Adverse Reactions: chlorzoxazone [From Parafon Forte] Allergy (Severe, Verified 11/13/16 18:34) Face swelled, couldn't breathe oxycodone HCl [From Percocet] Allergy (Unknown, Verified 11/13/16 18:34) Review of Systems Constitutional: ABSENT: chills, fever(s), headache(s), weight gain, weight loss Ears: ABSENT: hearing changes Nose, Mouth, and Throat: ABSENT: as per HPI, headache(s), mouth pain, sore throat, vertigo, other Cardiovascular: PRESENT: chest pain. ABSENT: as per HPI, dyspnea on exertion, edema, orthropnea, palpitations, other Respiratory: ABSENT: cough, hemoptysis Gastrointestinal: ABSENT: abdominal pain, constipation, diarrhea, hematemesis, hematochezia, nausea, vomiting Genitourinary: ABSENT: dysuria, hematuria Musculoskeletal: PRESENT: back pain - chronic low back pain, deformity - related to joint involvement witharthritis Integumentary: ABSENT: rash, wounds Neurological: ABSENT: abnormal gait, abnormal speech, confusion, dizziness, focal weakness, syncope Psychiatric: ABSENT: anxiety, depression, homidical ideation, suicidal ideation Hematologic/Lymphatic: ABSENT: easy bleeding, easy bruising, lymphadenopathy Allergic/Immunologic: ABSENT: as per HPI, seasonal rhinorrhea, other Physical Exam Vital Signs: Temp Pulse Resp BP Pulse Ox 97.3 F 71 17 121/67 97 11/14/16 03:35 11/14/16 07:56 11/14/16 03:35 11/14/16 03:35 11/14/16 03:35 Intake & Output 11/13/16 11/14/16 11/15/16 06:59 06:59 06:59 Intake Total 0 Balance 0 General appearance: PRESENT: no acute distress, cooperative, obese Head exam: PRESENT: atraumatic, normocephalic Eye exam: PRESENT: conjunctiva pink, EOMI, PERRLA. ABSENT: scleral icterus Ear exam: PRESENT: normal external ear exam Mouth exam: PRESENT: moist, tongue midline Teeth exam: ABSENT: dental caries, dental tenderness, edentulous, poor dentation , other Throat exam: ABSENT: post pharyngeal erythema, tonsillar erythema, tonsillar exudate, tonsillogmegaly, other Neck exam: PRESENT: full ROM. ABSENT: carotid bruit, JVD, lymphadenopathy, thyromegaly Respiratory exam: PRESENT: clear to auscultation leeann Cardiovascular exam: PRESENT: RRR. ABSENT: diastolic murmur, rubs, systolic murmur Pulses: PRESENT: normal dorsalis pedis pul, +2 pedal pulses bilateral Vascular exam: PRESENT: pallor GI/Abdominal exam: PRESENT: normal bowel sounds, soft. ABSENT: distended, guarding, mass, organolmegaly, rebound, tenderness Rectal exam: PRESENT: deferred Gentrourinary exam: ABSENT: ecchymosis, erythema, lacerations, lesions, scrotal swelling, testicular tenderness, urethral discharge, indwelling catheter, other Extremities exam: PRESENT: full ROM Musculoskeletal exam: PRESENT: deformity - related to joint involvement with arthritis Neurological exam: PRESENT: alert, awake, oriented to person, oriented to place , oriented to time, oriented to situation, CN II-XII grossly intact. ABSENT: motor sensory deficit Psychiatric exam: PRESENT: appropriate affect, normal mood. ABSENT: homicidal ideation, suicidal ideation Skin exam: PRESENT: dry, intact, warm. ABSENT: cyanosis, rash Results Laboratory Results: 11/14/16 11/14/16 11/14/16 01:21 01:21 07:10 Creatine Kinase 221 H 244 H CK-MB (CK-2) 1.35 Troponin I < 0.012 11/14/16 07:10 Creatine Kinase CK-MB (CK-2) 1.44 Troponin I < 0.012 Impressions: Chest X-Ray 11/13/16 18:34 IMPRESSION: No significant interval change. No acute findings. Other findings as noted above Assessment & Plan - Diagnosis (1) Diabetes mellitus type 2 in obese Is this a current diagnosis for this admission?: YesPlan: See admitting physician orders. (2) HTN (hypertension) Qualifiers: Hypertension type: essential hypertension Qualified Code(s): I10 - Essential (primary) hypertension Is this a current diagnosis for this admission?: YesPlan: See admitting physician orders. (3) HLD (hyperlipidemia) Qualifiers: Hyperlipidemia type: pure hypercholesterolemia Qualified Code(s): E78.00 - Pure hypercholesterolemia, unspecified; E78.0 - Pure hypercholesterolemia Is this a current diagnosis for this admission?: YesPlan: See admitting physician orders. (4) GERD (gastroesophageal reflux disease) Qualifiers: Esophagitis presence: without esophagitis Qualified Code(s): K21.9 - Gastro-esophageal reflux disease without esophagitis Is this a current diagnosis for this admission?: YesPlan: See admitting physician orders. (5) Chest pain Qualifiers: Chest pain type: unspecified Qualified Code(s): R07.9 - Chest pain, unspecified Is this a current diagnosis for this admission?: YesPlan: See admitting physician orders. (6) Muscle injury Is this a current diagnosis for this admission?: YesPlan: total CK level is not up to rhabdomyolysis diagnostic level but remain a consideration in this patient. See admitting physician orders. 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
[2016-11-14] MEDS ORDERED: SIMVASTATIN 10 MG TABLET PO SCH (22:00)
[2016-11-15 05:24] LABS: CREATINE KINASE MB 1.03 ng/mL (<4.55)
[2016-11-15 05:26] LABS: TROPONIN I < 0.012 ng/mL
--- NOTE | 2016-11-15 08:39 | PDOC DISCHARGE SUMMARY ---
General - Admit/Disc Date/PCP Admission Date/Primary Care Provider: 11/14/16 00:30 DIXIE LELO Discharge Date: 11/15/16 - Discharge Diagnosis (1) Diabetes mellitus type 2 in obese Is this a current diagnosis for this admission?: Yes (2) HTN (hypertension) Is this a current diagnosis for this admission?: Yes (3) HLD (hyperlipidemia) Is this a current diagnosis for this admission?: Yes (4) GERD (gastroesophageal reflux disease) Is this a current diagnosis for this admission?: Yes (5) Chest pain Is this a current diagnosis for this admission?: Yes (6) Muscle injury Is this a current diagnosis for this admission?: Yes - Additional Information Resuscitation Status: Full Code Discharge Diet: Cardiac, Diabetic Discharge Activity: Activity As Tolerated Home Medications: Aspirin [Aspirin EC] 81 mg PO DAILY 11/14/16 Carvedilol [Coreg 3.125 mg Tablet] 3.125 mg PO Q12 11/14/16 Finasteride [Proscar 5 mg Tablet] 5 mg PO DAILY 11/14/16 Glipizide [Glucotrol 10 mg Tablet] 10 mg PO BID 11/14/16 Hydrocodone Bit/Acetaminophen [Hydrocodon-Acetaminophen 5-325] 1 each PO Q8HP PRN 11/14/16 Lisinopril [Zestril] 10 mg PO DAILY 11/14/16 Metformin HCl [Glucophage] 1,000 mg PO BID 11/14/16 Ramipril [Altace 10 mg Capsule] 10 mg PO DAILY 11/14/16 Simvastatin [Zocor 20 mg Tablet] 20 mg PO QHS 11/14/16 Tamsulosin HCl [Flomax 0.4 mg Cap.sr] 0.4 mg PO DAILY 11/14/16 Fluticasone Propionate 2 spray NS DAILY #1 bottle 11/15/16 Nitroglycerin [Nitrostat 0.4 mg (1/150 Gr) Tabs 25/Bottle] 1 tab SL Q5MP PRN # 25 tab 11/15/16 Tiotropium [place] [Spiriva Handihaler 18 mcg/dose (30 Dose)] 2 inh IH DAILY PRN 11/15/16 History of Present Illness History of Present Illness: ROSALIO HOWELL is a 56 year old male known to my practice who presented to ED with complain of intermittent chest pain over last 5 days. He described pain as pressure like in character and localized to substernal region. Pain is non radiating, no associated diaphoresis, palpitation, nausea, or vomiting. Patient felt as if there is difficulty with burping and belching did improve pain slightly. Episodes lasted about 1 month. Patient reported holding off on his Aspirin due to schedule hernia and umbilical hernia repairs. His comorbidities include diabetes mellitus type 2, HTN, HLD, COPD, and GERD. In view of his presentation and comorbidities he was advised hospitalization on observation status for rule out ACS. Hospital Course Hospital Course: Patient denied any recurrent chest pain. No difficulty with breathing but experiencing nasal congestion with stuffiness and cough with yellowish sputum production. No reported fever or chills. No nausea or vomiting. Cardiac evaluation were unrevealing for ACS. Patient will be discharge home today with need for optimization of his medication management. He will be discharged on SL NTG 0.4mg q5mins prn for chest pain and Fluticasone NS 2 spray / nostrum daily for seasonal allergy management. He will follow up in the office as instructed upon discharge. Physical Exam Vital Signs: Temp Pulse Resp BP Pulse Ox 97.8 F 84 16 131/69 H 97 11/15/16 05:36 11/15/16 05:36 11/15/16 05:36 11/15/16 05:36 11/15/16 05:36 Intake & Output 11/14/16 11/15/16 11/16/16 06:59 06:59 06:59 Intake Total 0 1660 Balance 0 1660 Physical Exam: General appearance: PRESENT: no acute distress, cooperative, obese Head exam: PRESENT: atraumatic, normocephalic Eye exam: PRESENT: conjunctiva pink, EOMI, PERRLA. ABSENT: scleral icterus Mouth exam: PRESENT: moist, tongue midline Neck exam: PRESENT: full ROM. ABSENT: carotid bruit, JVD, lymphadenopathy, thyromegaly Respiratory exam: PRESENT: clear to auscultation leeann Cardiovascular exam: PRESENT: RRR. ABSENT: diastolic murmur, rubs, systolic murmur GI/Abdominal exam: PRESENT: normal bowel sounds, soft. ABSENT: distended, guarding, mass, organomegaly, rebound, tenderness Extremities exam: PRESENT: full ROM Musculoskeletal exam: PRESENT: deformity - related to joint involvement with arthritis Neurological exam: PRESENT: alert, awake, oriented to person, oriented to place , oriented to time, oriented to situation, CN II-XII grossly intact. ABSENT: motor sensory deficit Psychiatric exam: PRESENT: appropriate affect, normal mood. ABSENT: homicidal ideation, suicidal ideation Skin exam: PRESENT: dry, intact, warm. ABSENT: cyanosis, rash Results Laboratory Results: 11/14/16 11/14/16 11/14/16 01:21 01:21 07:10 Creatine Kinase 221 H 244 H CK-MB (CK-2) 1.35 Troponin I < 0.012 NT-Pro-B Natriuret Pep 11/14/16 11/14/16 11/14/16 07:10 13:55 13:55 Creatine Kinase 269 H CK-MB (CK-2) 1.44 1.28 Troponin I < 0.012 < 0.012 NT-Pro-B Natriuret Pep 11/15/16 11/15/16 04:29 04:29 Creatine Kinase 215 H CK-MB (CK-2) 1.03 Troponin I < 0.012 NT-Pro-B Natriuret Pep 70 Impressions: Chest X-Ray 11/13/16 18:34 IMPRESSION: No significant interval change. No acute findings. Other findings as noted above Qualifiers PATEINT BEING DISCHARGED WITH ANY OF THE FOLLOWING DIAGNOSIS?: No Plan Discharge Plan: D/C home today. F/up in office as instructed upon discharge. Time Spent: Less than 30 Minutes
[2016-11-15] MEDS: METFORMIN HCL 500 MG TABLET PO SCH (08:47)
[2016-11-15 09:56] VITALS: BP 121/71
== END 2016-11-15 10:08 | disposition home or self-care (01) ==
LOC: ER 18:19 → EH 22:40 → UNDOADMOB 22:40 → EH 11-14 00:05 → 4S 11-14 00:05
PROVIDERS: ADMIT Internal Medicine Geriatric Medicine; ATTEND Internal Medicine Geriatric Medicine
DX: R07.9 Chest pain, unspecified (principal); E11.9 Type 2 diabetes mellitus without complications; E66.9 Obesity, unspecified; I10 Essential (primary) hypertension; E78.5 Hyperlipidemia, unspecified; K21.9 Gastro-esophageal reflux disease without esophagitis; Z79.84 Long term (current) use of oral hypoglycemic drugs; M19.90 Unspecified osteoarthritis, unspecified site; J44.9 Chronic obstructive pulmonary disease, unspecified; F17.210 Nicotine dependence, cigarettes, uncomplicated
CPT/HCPCS: 93005; 99285; 36415 ×3; 82553 ×3; 82962; 82550 ×3; 83690; 85025; 85610; 80053; 81001; 84484 ×3; 80307; 83880; 93017; 71020; 78452; 93010; G0378 ×2; A9500; J2785; J3490 ×2; J1815; J0280; Q9969

== ENCOUNTER 2018-01-17 00:15 | Emergency (ER) | payer OTHER, MEDICARE ==
[2018-01-17] MEDS ORDERED: HYDROCODONE/ACETAMINOPHEN 5-325 MG TABLET PO ONE (01:38)
--- NOTE | 2018-01-17 01:42 | ER Document Report ---
ED General - General Chief Complaint: Leg Pain Stated Complaint: LEFT LEG PAIN Time Seen by Provider: 01/17/18 01:30 TRAVEL OUTSIDE OF THE [place] IN LAST 30 DAYS: No - Related Data Allergies/Adverse Reactions: chlorzoxazone [From Parafon Forte] Allergy (Severe, Verified 11/13/16 18:34) Face swelled, couldn't breathe oxycodone HCl [From Percocet] Allergy (Unknown, Verified 11/13/16 18:34) Past Medical History - Social History Smoking Status: Current Some Day Smoker Chew tobacco use (# tins/day): No Frequency of alcohol use: Social Drug Abuse: None Family History: Reviewed & Not Pertinent Patient has suicidal ideation: No Patient has homicidal ideation: No - Past Medical History Cardiac Medical History: Reports: Hx Hypercholesterolemia, Hx Hypertension, Hx Heart Murmur Denies: Hx Congestive Heart Failure, Hx Coronary Artery Disease, Hx Heart Attack Pulmonary Medical History: Reports: Hx Asthma - As a child, Hx COPD, Hx Pneumonia, Hx Sleep Apnea Denies: Hx Bronchitis Neurological Medical History: Denies: Hx Cerebrovascular Accident, Hx Seizures Endocrine Medical History: Reports: Hx Diabetes Mellitus Type 2 Renal/ Medical History: Denies: Hx Peritoneal Dialysis GI Medical History: Reports: Hx Hiatal Hernia Musculoskeltal Medical History: Reports Hx Arthritis Infectious Medical History: Past Surgical History: Reports: Hx Orthopedic Surgery - bilateral knee replacement. Denies: Hx Pacemaker - Immunizations Hx Diphtheria, Pertussis, Tetanus Vaccination: Yes Hx Pneumococcal Vaccination: 05/26/10 Physical Exam - Vital signs Vitals: Pulse BP Pulse Ox 96 145/79 H 96 01/17/18 00:57 01/17/18 00:57 01/17/18 00:57 Course - Vital Signs Vital signs: Temp Pulse Resp BP Pulse Ox 96 145/79 H 96 01/17/18 00:57 01/17/18 00:57 01/17/18 00:57 Discharge - Discharge Clinical Impression: Leg pain Qualifiers: Laterality: right Qualified Code(s): M79.604 - Pain in right leg Condition: Stable Disposition: HOME, SELF-CARE Instructions: Leg Pain Nonspecific ([facility]) Prescriptions: Tramadol HCl 50 mg PO Q6 #10 tablet Referrals: DIXIE LIND MD [Primary Care Provider] - Follow up as needed
[2018-01-17 02:45] VITALS: BP 122/79
== END 2018-01-17 02:42 | disposition home or self-care (01) ==
LOC: ER 00:15
DX: M79.605 Pain in left leg (principal); M79.604 Pain in right leg; F17.200 Nicotine dependence, unspecified, uncomplicated; E78.00 Pure hypercholesterolemia, unspecified; I10 Essential (primary) hypertension; E11.9 Type 2 diabetes mellitus without complications
CPT/HCPCS: 99283

== ENCOUNTER 2019-01-24 23:33 | Emergency (ER) | payer OTHER, MEDICARE ==
[2019-01-25 02:28] LABS: ABSOLUTE EOSINOPHILS # (AUTO) 0.1 10^3/uL (0.0-0.6); ABSOLUTE LYMPHOCYTES (AUTO) 2.6 10^3/uL (0.5-4.7); ABSOLUTE MONOCYTES (AUTO) 0.5 10^3/uL (0.1-1.4); ABSOLUTE NEUT (AUTO) 3.9 10^3/uL (1.7-8.2); BASOPHILS % (AUTO) 0.7 % (0-2); EOSINOPHILS % (AUTO) 1.7 % (0-6); HEMATOCRIT 41.1 % (37.9-51.0); HEMOGLOBIN 13.6 g/dL (13.5-17.0); LYMPHOCYTES % (AUTO) 36.4 % (13-45); MEAN CORPUSCULAR HEMOGLOBIN 28.7 pg (27.0-33.4); MEAN CORPUSCULAR VOLUME 87 fl (80-97); MONOCYTES % (AUTO) 7.5 % (3-13); PLATELET COUNT 192 10^3/uL (150-450); RED BLOOD COUNT 4.73 10^6/uL (4.35-5.55); RED CELL DISTRIBUTION WIDTH 14.5 % (11.5-14.0); SEGMENTED NEUTROPHILS % (AUTO) 53.7 % (42-78); TOTAL CELLS COUNTED % (AUTO) 100 %; WHITE BLOOD COUNT 7.2 10^3/uL (4.0-10.5)
[2019-01-25 02:47] LABS: ALANINE AMINOTRANSFERASE 22 U/L (21-72); ALBUMIN 4.2 g/dL (3.5-5.0); ALKALINE PHOSPHATASE 55 U/L (38-126); ANION GAP 10 (5-19); ASPARTATE AMINO TRANSFERASE 22 U/L (17-59); BILIRUBIN,DIRECT 0.2 mg/dL (0.0-0.4); BILIRUBIN,TOTAL 0.4 mg/dL (0.2-1.3); BLOOD UREA NITROGEN 13 mg/dL (7-20); CALCIUM 8.8 mg/dL (8.4-10.2); CARBON DIOXIDE 26 mmol/L (22-30); CHLORIDE 110 mmol/L (98-107); GLUCOSE 124 mg/dL (75-110); POTASSIUM 4.4 mmol/L (3.6-5.0); SODIUM 145.9 mmol/L (137-145); TOTAL PROTEIN 6.7 g/dL (6.3-8.2)
[2019-01-25] MEDS ORDERED: KETOROLAC TROMETHAMINE INJ/PF 30 MG/1 ML SDV IV ONE (03:29)
--- NOTE | 2019-01-25 03:31 | ER Document Report ---
ED General - General Chief Complaint: Flank Pain Stated Complaint: ABDOMINAL PAIN, LEFT FINGER SWELLING Time Seen by Provider: 01/25/19 02:19 Primary Care Provider: DIXIE LIND MD [Primary Care Provider] - Follow up as needed Notes: Patient is a 58-year-old male who presents with multiple complaints. Patient is complaining primarily of bilateral elbow pain as well as pain to his right middle finger. Also complains of right flank pain. States that all these issues been going on for several months. Describes the pain to the affected areas as being throbbing, aching, constant, moderate to severe in intensity. Nothing improves or worsens the pain. Has seen his general physician regarding these issues without resolution. States that he came to the emergency department tonight simply because the pain was making it difficult for him to sleep. Denies fever or constitutional symptoms. No chest pain shortness of breath, nausea, melena, hematochezia or syncope. TRAVEL OUTSIDE OF THE [place] IN LAST 30 DAYS: No - Related Data Allergies/Adverse Reactions: chlorzoxazone [From Parafon Forte] Allergy (Severe, Verified 11/13/16 18:34) Face swelled, couldn't breathe oxycodone HCl [From Percocet] Allergy (Unknown, Verified 11/13/16 18:34) Past Medical History - General Information source: Patient - Social History Smoking Status: Never Smoker Frequency of alcohol use: None Drug Abuse: None Family History: Reviewed & Not Pertinent Patient has suicidal ideation: No Patient has homicidal ideation: No - Past Medical History Cardiac Medical History: Reports: Hx Hypercholesterolemia, Hx Hypertension, Hx Heart Murmur Denies: Hx Congestive Heart Failure, Hx Coronary Artery Disease, Hx Heart Attack Pulmonary Medical History: Reports: Hx Asthma - As a child, Hx COPD, Hx Pneumonia, Hx Sleep Apnea Denies: Hx Bronchitis Neurological Medical History: Denies: Hx Cerebrovascular Accident, Hx Seizures Endocrine Medical History: Reports: Hx Diabetes Mellitus Type 2 Renal/ Medical History: Denies: Hx Peritoneal Dialysis GI Medical History: Reports: Hx Hiatal Hernia Musculoskeletal Medical History: Reports Hx Arthritis Infectious Medical History: Past Surgical History: Reports: Hx Orthopedic Surgery - bilateral knee replacement. Denies: Hx Pacemaker - Immunizations Hx Diphtheria, Pertussis, Tetanus Vaccination: Yes Hx Pneumococcal Vaccination: 05/26/10 Review of Systems - Review of Systems Notes: Constitutional: Negative for fever. HENT: Negative for sore throat. Eyes: Negative for visual changes. Cardiovascular: Negative for chest pain. Respiratory: Negative for shortness of breath. Gastrointestinal: Negative for abdominal pain, vomiting or diarrhea. Genitourinary: Negative for dysuria. Musculoskeletal: Positive for bilateral elbow pain, positive for right flank pain Skin: Negative for rash. Neurological: Negative for headaches, weakness or numbness. 10 point ROS negative except as marked above and in HPI. Physical Exam - Vital signs Vitals: Temp Pulse Resp BP Pulse Ox 97.7 F 88 18 143/83 H 94 01/25/19 00:06 01/25/19 00:06 01/25/19 00:06 01/25/19 00:06 01/25/19 00:06 Interpretation: Normal Notes: PHYSICAL EXAMINATION: GENERAL: Well-appearing, well-nourished and in no acute distress. HEAD: Atraumatic, normocephalic. EYES: Pupils equal round and reactive to light, extraocular movements intact, sclera anicteric, conjunctiva are normal. ENT: nares patent, oropharynx clear without exudates. Moist mucous membranes. NECK: Normal range of motion, supple without lymphadenopathy LUNGS: Breath sounds clear to auscultation bilaterally and equal. No wheezes rales or rhonchi. HEART: Regular rate and rhythm without murmurs ABDOMEN: Soft, nontender, normoactive bowel sounds. No guarding, no rebound. No masses appreciated. No flank tenderness on palpation. EXTREMITIES: Normal range of motion, no swelling or effusions to the elbows bilaterally, no pitting or edema. No cyanosis. Back: No midline spinal tenderness, step-offs or deformities. NEUROLOGICAL: 5 out of 5 strength both distally and proximally bilateral lower extremities. 2+ patellar reflexes bilaterally. No clonus. Sensation grossly intact in the bilateral lower extremities. Patient is able to ambulate without difficulty. PSYCH: Normal mood, normal affect. SKIN: Warm, Dry, normal turgor, no rashes or lesions noted. Course - Re-evaluation Re-evalutation: 01/25/19 03:30 Patient presents with multiple vague complaints that did not appear to be concerning for any acute life-threatening pathology. Vitals are within normal limits at triage and at time of discharge. Physical examination is unremarkable. Patient has tolerated oral intake without difficulty. Patient was not noted to be in distress at any point during their ER visit. At this time, based on the reassuring evaluation, I do not suspect an acute UT, pulmonary embolus, aortic dissection, acute intra-abdominal pathology, stroke, or sepsis.Will discharge with return precautions and follow-up recommendations. Verbal discharge instructions given a the bedside and opportunity for questions given. Medication warnings reviewed. Patient is in agreement with this plan and has verbalized understanding of return precautions and the need for primary care follow-up in the next 24-72 hours. - Vital Signs Vital signs: Temp Pulse Resp BP Pulse Ox 98.4 F 89 14 168/88 H 94 01/25/19 03:52 01/25/19 03:52 01/25/19 03:52 01/25/19 03:52 01/25/19 00:06 - Laboratory Result Diagrams: 01/25/19 02:12 01/25/19 02:12 Laboratory results interpreted by me: 01/25/19 01/25/19 02:12 02:12 RDW 14.5 H Sodium 145.9 H Chloride 110 H Glucose 124 H Discharge - Discharge Clinical Impression: Multiple complaints, Pain of both elbows, Right flank pain Condition: Fair Disposition: HOME, SELF-CARE Additional Instructions: Please return to the emergency room immediately if you experience any concerning symptoms including high fevers, severe headache, chest pain, difficulty breathi ng, abdominal pain, slurred speech, numbness or weakness in your arms or legs, or any other symptom that concerns you. For the pain in your arms take naproxen 500 mg twice daily as needed. Please do follow-up with your primary care physician regarding your concerns today. Prescriptions: Naproxen 500 mg PO BID PRN #14 tablet PRN Reason: Referrals: DIXIE LIND MD [Primary Care Provider] - Follow up as needed
[2019-01-25 03:54] VITALS: BP 168/88
== END 2019-01-25 03:52 | disposition home or self-care (01) ==
LOC: ER 23:33
DX: R10.9 Unspecified abdominal pain (principal); R22.32 Localized swelling, mass and lump, left upper limb; M25.522 Pain in left elbow; M25.521 Pain in right elbow; E78.00 Pure hypercholesterolemia, unspecified; I10 Essential (primary) hypertension; E11.9 Type 2 diabetes mellitus without complications; Z88.6 Allergy status to analgesic agent; Z96.653 Presence of artificial knee joint, bilateral
CPT/HCPCS: 99284; 96374; 36415; 85025; 80053; J1885

== ENCOUNTER → 2019-02-17 | Outpatient (CLI) | payer MEDICARE ==
--- NOTE | 2019-02-17 16:36 | RADIOLOGY REPORT (SQ) ---
EXAM DESCRIPTION: U/S THYROID/SFT TISS HD NECK COMPLETED DATE/TIME: 02/17/2019 4:24 pm REASON FOR STUDY: M79.9 SOFT TISSUE DISORDER, UNSPECIFIED M79.9 SOFT TISSUE DISORDER, UNSPECIFIED COMPARISON: None. TECHNIQUE: Dynamic and static brooks-scale images acquired of the left frontal scalp in an area of pal pable abnormality. Selected additional color/power Doppler images recorded. All images stored to PAC S. LIMITATIONS: None. FINDINGS: Ultrasound over the left frontal region was performed. Patient has a palpable abnormality which is tender, ultrasound of this area was performed. A 2.7 x 1.8 cm area of scalp thickening is present along the outer table left frontal region with alt ernating echogenic and hypoechoic layers. There is a prominent scalp vessel over the superficial manasa face of this nodule. However the nodule itself demonstrates no definite internal color flow. This c ould represent layers subperiosteal new bone related to trauma, scalp hematoma, or scalp foreign body . Correlation with CT brain without and with contrast recommended. IMPRESSION: 2.7 x 1.8 cm area of outer table calvarial thickening with adjacent prominent blood vess el. This could be reactive in nature. Primary bone tumor or metastatic bone tumor could not entirel y be excluded. CT brain without and with contrast recommended for followup. TECHNICAL DOCUMENTATION: JOB ID: [id number] [employer]- All Rights Reserved Reading location - IP/workstation name: [email or web address]
== END ==
LOC: RAD 15:41
PROVIDERS: ATTEND Internal Medicine Geriatric Medicine
DX: R22.0 Localized swelling, mass and lump, head (principal)
CPT/HCPCS: 76536

== ENCOUNTER → 2019-02-18 | Outpatient (CLI) | payer MEDICARE ==
[2019-02-19 09:38] LABS: CHOLESTEROL 97.02 mg/dL (0-200); TRIGLYCERIDES 69 mg/dL (<150); URIC ACID 6.3 mg/dL (3.5-8.5)
[2019-02-19 09:46] LABS: DIRECT LDL 52 mg/dL (<100)
[2019-02-19 09:48] LABS: C-REACTIVE PROTEIN < 5.0 mg/L (<10.0)
== END ==
LOC: OD 09:19
PROVIDERS: ATTEND Internal Medicine Geriatric Medicine
DX: Z00.00 Encounter for general adult medical examination without abnormal findings (principal); E78.5 Hyperlipidemia, unspecified; M25.50 Pain in unspecified joint
CPT/HCPCS: 36415; 80061; 84550; 85652; 86140

== ENCOUNTER → 2019-03-31 | Outpatient (CLI) | payer MEDICARE ==
--- NOTE | 2019-03-31 09:37 | RADIOLOGY REPORT (SQ) ---
EXAM DESCRIPTION: CT HEAD COMBO COMPLETED DATE/TIME: 03/31/2019 8:03 am REASON FOR STUDY: LOCALIZED SWELLING, MASS AND LUMP, HEAD (R22.0) R22.0 LOCALIZED SWELLING, MASS AN D LUMP, HEAD COMPARISON: None. TECHNIQUE: Axial images acquired through the brain without and with intravenous contrast. Images re viewed with bone, brain and subdural windows. Additional sagittal and coronal reconstructions were g enerated. Images stored on PACS. All CT scanners at this facility use dose modulation, iterative reconstruction, and/or weight based d osing when appropriate to reduce radiation dose to as low as reasonably achievable (ALARA). [facility]: Dose Right [facility]: CareDose [facility]: Dose Right [facility]: Teradose 4D [facility]: Axcient CONTRAST TYPE AND DOSE: contrast/concentration: Isovue 350.00 mg/ml; Total Contrast Delivered: 50.0 ml; Total Saline Delivered: 55.0 ml RENAL FUNCTION: Creatinine 0.9 RADIATION DOSE: CT Rad equipment meets quality standard of care and radiation dose reduction techniq ues were employed. CTDIvol: 48.6 - 48.6 mGy. DLP: 1858 mGy-cm.. LIMITATIONS: None. FINDINGS: VENTRICLES: Normal size and contour. CEREBRUM: No masses. No hemorrhage. No midline shift. Normal brooks/white matter differentiation. No ev idence for acute infarction. No enhancing lesions. CEREBELLUM: No masses. No hemorrhage. No alteration of density. No evidence for acute infarction. No enhancing lesions. EXTRA-AXIAL SPACES: No fluid collections. No enhancing lesions. ORBITS AND GLOBE: No intra- or extraconal masses. Normal contour of globe without masses. CALVARIUM: No fracture. PARANASAL SINUSES: No fluid or mucosal thickening. SOFT TISSUES: No mass or hematoma. OTHER: No other significant finding. IMPRESSION: NORMAL BRAIN CT WITHOUT AND WITH CONTRAST. EVIDENCE OF ACUTE STROKE: NO. TECHNICAL DOCUMENTATION: JOB ID: [id number] Quality ID # [id number]: Final reports with documentation of one or more dose reduction techniques (e.g., Au tomated exposure control, adjustment of the mA and/or kV according to patient size, use of iterative reconstruction technique) 2010 [employer]- All Rights Reserved Reading location - IP/workstation name: [email or web address]
== END ==
LOC: RAD 07:25
PROVIDERS: ATTEND Internal Medicine Geriatric Medicine
DX: R22.0 Localized swelling, mass and lump, head (principal)
CPT/HCPCS: 70470; 82565

== ENCOUNTER 2019-11-03 17:50 | Emergency (ER) | payer OTHER, MEDICARE ==
[2019-11-03] MEDS ORDERED: DIPH/PERTUSS(ACELL)/TETANUS VAC/PF 0.5 ML SYR (>=10YO) IM ONE (19:06)
--- NOTE | 2019-11-03 19:10 | ER Document Report ---
ED Medical Screen (RME) - General Chief Complaint: Finger Injury Stated Complaint: LACERATION/LEFT INDEX FINGER Time Seen by Provider: 11/03/19 19:04 Primary Care Provider: DIXIE LIND MD [Primary Care Provider] - Follow up as needed Mode of Arrival: Ambulatory Information source: Patient Notes: 59-year-old male presented to ED for laceration to the end of the left index finger. He cut it on and can while opening the can. He is alert oriented respirations regular nonlabored bleeding is under control. He states his tetanus was not up-to-date. TRAVEL OUTSIDE OF THE [place] IN LAST 30 DAYS: No - HPI Onset: Just prior to arrival Onset/Duration: Sudden Quality of pain: Sharp Severity: Moderate Pain Level: 2 Associated Symptoms: Other - Patient left index finger Exacerbated by: Movement Relieved by: Denies Similar symptoms previously: No - Related Data Smoking: Cigarettes Frequency of alcohol use: None Drug Abuse: None Allergies/Adverse Reactions: chlorzoxazone [From Parafon Forte] Allergy (Severe, Verified 11/03/19 19:04) Face swelled, couldn't breathe oxycodone HCl [From Percocet] Allergy (Unknown, Verified 11/03/19 19:04) Past Medical History - General Information source: Patient - Social History Cigarette use (# per day): Yes Frequency of alcohol use: None Drug Abuse: None Lives with: Family Family history: Reviewed & Not Pertinent - Past Medical History Cardiac Medical History: Reports: Hx Hypercholesterolemia, Hx Hypertension, Hx Heart Murmur Pulmonary Medical History: Reports: Hx Asthma - As a child, Hx COPD, Hx Pneumonia, Hx Sleep Apnea EENT Medical History: Reports: None Neurological Medical History: Reports: None Endocrine Medical History: Reports: Hx Diabetes Mellitus Type 2 Renal/ Medical History: Reports: None Malignancy Medical History: Reports None GI Medical History: Reports: Hx Hiatal Hernia Musculoskeltal Medical History: Reports Hx Arthritis Skin Medical History: Reports None Psychiatric Medical History: Reports: None Traumatic Medical History: Reports: None Infectious Medical History: Reports: None Past Surgical History: Reports: Hx Orthopedic Surgery - bilateral knee replacement - Immunizations Hx Diphtheria, Pertussis, Tetanus Vaccination: Yes Review of Systems - Review of Systems Constitutional: No symptoms reported EENT: No symptoms reported Cardiovascular: No symptoms reported Respiratory: No symptoms reported Gastrointestinal: No symptoms reported Genitourinary: No symptoms reported Male Genitourinary: No symptoms reported Musculoskeletal: No symptoms reported Skin: Other - Laceration left index finger Hematologic/Lymphatic: No symptoms reported Neurological/Psychological: No symptoms reported Physical Exam - Vital signs Vitals: Temp Pulse Resp BP Pulse Ox 98.5 F 110 H 16 113/69 94 11/03/19 18:07 11/03/19 18:07 11/03/19 18:07 11/03/19 18:07 11/03/19 18:07 Interpretation: Normal - General General appearance: Appears well, Alert - HEENT Head: Normocephalic, Atraumatic Eyes: Normal Pupils: PERRL - Respiratory Respiratory status: No respiratory distress Chest status: Nontender Breath sounds: Normal Chest palpation: Normal - Cardiovascular Rhythm: Regular Heart sounds: Normal auscultation Murmur: No - Abdominal Inspection: Normal Distension: No distension Bowel sounds: Normal Tenderness: Nontender Organomegaly: No organomegaly - Back Back: Normal, Nontender - Extremities General upper extremity: Normal inspection, Nontender, Normal color, Normal ROM, Normal temperature General lower extremity: Normal inspection, Nontender, Normal color, Normal ROM, Normal temperature, Normal weight bearing. No: Evens's sign - Neurological Neuro grossly intact: Yes Cognition: Normal Orientation: AAOx4 [place] Coma Scale Eye Opening: Spontaneous [place] Coma Scale Verbal: Oriented [place] Coma Scale Motor: Obeys Commands Maria De Jesus Coma Scale Total: 15 Speech: Normal Motor strength normal: LUE, RUE, LLE, RLE Sensory: Normal - Psychological Associated symptoms: Normal affect, Normal mood - Skin Skin Temperature: Warm Skin Moisture: Dry Skin Color: Normal Skin irregularity: Laceration - End of left index finger 1 cm Location of irregularity: Extremities Course - Vital Signs Vital signs: Temp Pulse Resp BP Pulse Ox 97.7 F 101 H 18 117/73 96 11/03/19 19:59 11/03/19 19:59 11/03/19 19:59 11/03/19 19:59 11/03/19 19:59 Procedures - Laceration/Wound Repair Left Finger 2nd digit Time completed: 19:19 Wound length (cm): 1 Wound's Depth, Shape: Superficial, Linear Laceration pre-procedure: Sterile PPE donned, Shur-Clens applied Anesthetic type: Other - 0 Volume Anesthetic (mLs): 0 Wound explored: Contaminated Irrigated w/ Saline (mLs): 30 Wound Repaired With: Dermabond Post-procedure NV exam normal: Yes Complications: No Doctor's Discharge - Discharge Clinical Impression: Finger laceration Qualifiers: Encounter type: initial encounter Finger: index finger Damage to nail status: without damage Foreign body presence: without foreign body Laterality: left Qualified Code(s): S61.211A - Laceration without foreign body of left index finger without damage to nail, initial encounter Condition: Stable Disposition: HOME, SELF-CARE Additional Instructions: Hand Laceration A laceration on the hand can present special problems. It may be difficult to keep the wound dry. Motion of the fingers can disturb the healing edges. Your work may involve exposure to damaging chemicals or water. Keep the wound clean and dry. If you can't keep the cut dry, undisturbed, and free of chemical exposure, please discuss this with the doctor. If any water or chemical gets onto the dressing, remove it, blot the wound dry, then apply a fresh bandage. Dressings should be changed every day. If you feel the stitches pulling as you move the hand, a splint or other form of protection is needed. If any signs of infection occur (swelling, redness, increasing tenderness, red streaks, tender lumps in the armpit, or fever), see the doctor immediately. Dermabond (Skin Adhesive Closure) Skin adhesive (such as Dermabond) is a quick-drying glue that remains slightly flexible while it holds wound edges together. It can substitute for stitches on some cuts. The film will usually fall off the skin after 5 to 10 da ys. Keep the wound area clean and dry. Do not soak or scrub the wound. Don't swim. You can shower briefly after 24 hours. Gently blot the area dry with a soft towel. Don't apply ointments. If there is a dressing, change it immediately if it gets wet. Do not place tape directly over the adhesive film, because the tape may pull the film off your skin as you remove it. Don't bump the wound area. If there's risk of injury, keep the area well- padded. Avoid stretching of the skin. Do not scratch or pick at the adhesive film. Avoid prolonged exposure to sunlight or tanning lamps. Return if there is increasing pain, swelling, redness, or drainage, or if the wound edges seem to open or separate. SOAP CLEANSING: Gently wash the wound daily using a mild soap (like Ivory, Phisoderm, Neutrogena). Use warm water, rubbing gently until all debris, ooze, and crusting have been washed from the wound. Allow to dry briefly (about 10 minutes) after cleaning. Repeat this cleansing at least three times a day for the first two days and then once or twice a day. TETANUS IMMUNIZATION GIVEN: You have been given an immunization against tetanus. Please record this in your records. In general, a booster is needed only once every 10 years. The tetanus shot protects against tetanus or "lockjaw," which is a complication of certain wound infections (the tetanus shot cannot protect against the actual infection). The immunization site may become warm and red due to local reaction. If this occurs, apply warm compresses and take aspirin or ibuprofen to reduce inflammation and discomfort. Return for evaluation if the reaction becomes severe. FOLLOW-UP CARE: If you have been referred to a physician for follow-up care, call the physicians office for an appointment as you were instructed or within the next two days. If you experience worsening or a significant change in your symptoms, notify the physician immediately or return to the Emergency Department at any time for re-evaluation. Referrals: DIXIE LIND MD [Primary Care Provider] - Follow up as needed
[2019-11-03 20:00] VITALS: BP 117/73
== END 2019-11-03 20:30 | disposition home or self-care (01) ==
LOC: ER 17:50
DX: S61.211A Laceration without foreign body of left index finger without damage to nail, initial encounter (principal); W45.8XXA Other foreign body or object entering through skin, initial encounter; Y93.89 Activity, other specified; I10 Essential (primary) hypertension; J44.9 Chronic obstructive pulmonary disease, unspecified; E11.9 Type 2 diabetes mellitus without complications; Z72.0 Tobacco use; Z23 Encounter for immunization; Z88.8 Allergy status to other drugs, medicaments and biological substances; Z88.6 Allergy status to analgesic agent; Z88.5 Allergy status to narcotic agent
CPT/HCPCS: 90471; 90715; 99282

== ENCOUNTER 2019-12-01 14:06 | Emergency (ER) | payer OTHER, MEDICARE ==
--- NOTE | 2019-12-01 14:19 | ER Document Report ---
HPI - HPI Onset: This morning Context: Patient presents for evaluation of the coronavirus at the [facility]. Patient reports recent exposure to someone who tested positive for the coronavirus. Patient reports body aches some mild cough and diarrhea. Patient states that he has a history of COPD and the cough is no worse than his usual cough. Patient states he takes metformin for his diabetes and therefore the diarrhea is typical. Patient denies any fever chills sore throat or runny nose. Patient denies any nausea or vomiting. Patient does have a history of asthma COPD diabetes and is currently at 1 pack/day smoker. Patient states the only reason he came here today is because of his recent known exposure to the coronavirus so that he could be tested. Associated Symptoms: Body/muscle aches, Nonproductive cough, Headache. denies: Fever Exacerbated by: Denies Relieved by: Denies Recently seen / treated by doctor: No - ROS ROS below otherwise negative: Yes Systems Reviewed and Negative: Yes All other systems reviewed and negative - CONSTITUTIONAL Constitutional: DENIES: Fever, Chills - NEURO Neurology: REPORTS: Headache - RESPIRATORY Respiratory: REPORTS: Coughing. DENIES: Trouble Breathing - GASTROINTESTINAL Gastrointestinal: REPORTS: Abdominal Pain - REPRODUCTIVE Reproductive: DENIES: : - DERM Skin Color: Normal Skin Problems: None Past Medical History - General Information source: Patient - Social History Smoking Status: Current Every Day Smoker Family History: Reviewed & Not Pertinent - Past Medical History Cardiac Medical History: Reports: Hx Hypercholesterolemia, Hx Hypertension, Hx Heart Murmur Denies: Hx Congestive Heart Failure, Hx Coronary Artery Disease, Hx Heart Attack Pulmonary Medical History: Reports: Hx Asthma - As a child, Hx COPD, Hx Pneumonia, Hx Sleep Apnea Denies: Hx Bronchitis Neurological Medical History: Denies: Hx Cerebrovascular Accident, Hx Seizures Endocrine Medical History: Reports: Hx Diabetes Mellitus Type 2 Renal/ Medical History: Denies: Hx Peritoneal Dialysis GI Medical History: Reports: Hx Hiatal Hernia Musculoskeletal Medical History: Reports Hx Arthritis Infectious Medical History: Past Surgical History: Reports: Hx Orthopedic Surgery - bilateral knee replacement. Denies: Hx Pacemaker - Immunizations Hx Diphtheria, Pertussis, Tetanus Vaccination: Yes Hx Pneumococcal Vaccination: 05/26/10 Vertical Provider Document - CONSTITUTIONAL Exam Limitations: No Limitations General Appearance: WD/WN, No Apparent Distress - INFECTION CONTROL TRAVEL OUTSIDE OF THE [place] IN LAST 30 DAYS: No - HEENT HEENT: Atraumatic, Normocephalic. negative: Pharyngeal Exudate, Pharyngeal Tenderness, Pharyngeal Erythema - NECK Neck: Normal Inspection, Supple. negative: Lymphadenopathy-Left, Lymphadenopathy-Right - RESPIRATORY Respiratory: Breath Sounds Normal, No Respiratory Distress, Chest Non-Tender - CARDIOVASCULAR Cardiovascular: Regular Rate, Regular Rhythm, No Murmur. negative: Tachycardia - MUSCULOSKELETAL/EXTREMETIES Musculoskeletal/Extremeties: MAEW - NEURO Level of Consciousness: Awake, Alert, Appropriate Motor/Sensory: No Motor Deficit - DERM Integumentary: Warm, Dry, No Rash Course - Re-evaluation Re-evalutation: 12/01/19 14:18 The patient was evaluated during the global Covid 19 pandemic, and that diagnosis was suspected/considered upon their initial presentation. Their troy luation, treatment and testing was consistent with current guidelines for patients who present with complaints or symptoms that may be related to Covid 19. Patient presents with upper respiratory symptoms worrisome for possible Covid 19. Patient does not have emergency worrying symptoms such as difficulty breathing, shortness of breath, chest pain, pressure, confusion or cyanosis. Patient appears suitable for discharge as they are not of an advanced age, do not have any chronic medical conditions such as diabetes, CAD, immune deficiency, chronic lung disease or chronic kidney disease. Patient's vital signs are stable and patient is nontoxic in appearance. Good return precautions have been discussed with patient, patient verbalized understanding and is agreeable with discharge plan of care at this time. - Laboratory Laboratory results interpreted by me: 12/01/19 15:31 Labs- Entire Visit 12/01/19 12/01/19 14:45 14:47 Influenza A (Rapid) NEGATIVE Influenza B (Rapid) NEGATIVE Group A Strep Rapid NEGATIVE Discharge - Discharge Clinical Impression: covid 9 screening Upper respiratory infection Qualifiers: URI type: unspecified URI Qualified Code(s): J06.9 - Acute upper respiratory infection, unspecified Condition: Stable Disposition: HOME, SELF-CARE Instructions: Acetaminophen, Upper Respiratory Illness ([facility]) Additional Instructions: Return immediately for any new or worsening symptoms Followup with your primary care provider, call tomorrow to make a followup yakov ointment If your symptoms become severe and you do not feel that you can manage her symptoms at home, follow-up with the emergency department or call 911 if your symptoms become severe. As a person under investigation for Covid 19, the [facility], division of public health advises you to adhere to the following guidance until your test results are reported to you. If your test result is positive, you will receive additional information from your provider and your local health department at that time. Remain at home until you are cleared by the health provider or public health authorities. Keep a log of visitors to your home, notify any visitors to your home of your isolation status. If you plan to move to a new address or leave the county, notify the local health department in your County. Call your doctor or seek care if you have an urgent medical need. Before seeking medical care, call ahead to get instructions from the provider before arriving at the medical office clinic or hospital. Notify them that you are being tested for the virus that causes Covid 19 so that arrangements can be made, as necessary, to prevent transmission to others in the healthcare setting. Next, notify the local health department in your county. If a medical emergency arises and you need to call 911, inform the first responders that you are being tested for the virus that causes Covid 19. Next, notify the local health department in your county. Referrals: DIXIE LIND MD [Primary Care Provider] - Follow up as needed
[2019-12-01 14:58] VITALS: BP 117/71
[2019-12-01 15:29] LABS: A TYPE INFLUENZA AG NEGATIVE (NEGATIVE); B INFLUENZA AG NEGATIVE (NEGATIVE)
== END 2019-12-01 15:45 | disposition home or self-care (01) ==
LOC: EDRDC 14:06
DX: J06.9 Acute upper respiratory infection, unspecified (principal); Z20.828 Contact with and (suspected) exposure to other viral communicable diseases; R19.7 Diarrhea, unspecified; R05 Cough; M79.10 Myalgia, unspecified site; R51 Headache; R10.9 Unspecified abdominal pain; I10 Essential (primary) hypertension; F17.200 Nicotine dependence, unspecified, uncomplicated; Z87.01 Personal history of pneumonia (recurrent); Z79.84 Long term (current) use of oral hypoglycemic drugs
CPT/HCPCS: 87070; 87635; 87804; 87880; 99211

== ENCOUNTER 2020-08-05 21:36 | Inpatient (IN) | payer OTHER, MEDICARE ==
[2020-08-05] MEDS ORDERED: RINGERS SOLUTION,LACTATED 1,000 ML IV ONE (22:33)
--- NOTE | 2020-08-05 22:34 | ER Document Report ---
ED Medical Screen (RME) - General Chief Complaint: Urinary Problem Stated Complaint: URINATING ISSUE,URINATED ON SELF Time Seen by Provider: 08/05/20 22:26 Primary Care Provider: DIXIE LIND MD [Primary Care Provider] - Follow up as needed Notes: Patient states that this evening he was standing and talking to a family member and suddenly had incontinence of urine. Patient states that he was incontinent of a large amount of urine which is never happened to him before. Patient states that he does occasionally dribble urine but never this much. Patient states that today he has not felt right although denies any complaints at this time. Patient hypotensive in triage. Patient does have a history of hypertension, BPH, degenerative disc disease and diabetes. I have greeted and performed a rapid initial assessment of this patient. A comprehensive ED assessment and evaluation of the patient, analysis of test results and completion of the medical decision making process will be conducted by additional ED providers. TRAVEL OUTSIDE OF THE [place] IN LAST 30 DAYS: No - Related Data Allergies/Adverse Reactions: chlorzoxazone [From Parafon Forte] Allergy (Severe, Verified 11/03/19 19:04) Face swelled, couldn't breathe oxycodone HCl [From Percocet] Allergy (Unknown, Verified 11/03/19 19:04) Past Medical History - Social History Family history: Reviewed & Not Pertinent - Past Medical History Cardiac Medical History: Reports: Hx Hypercholesterolemia, Hx Hypertension, Hx Heart Murmur Denies: Hx Congestive Heart Failure, Hx Coronary Artery Disease, Hx Heart Attack Pulmonary Medical History: Reports: Hx Asthma - As a child, Hx COPD, Hx Pneumonia, Hx Sleep Apnea Denies: Hx Bronchitis Neurological Medical History: Denies: Hx Cerebrovascular Accident, Hx Seizures Endocrine Medical History: Reports: Hx Diabetes Mellitus Type 2 Renal/ Medical History: Denies: Hx Peritoneal Dialysis GI Medical History: Reports: Hx Hiatal Hernia Musculoskeltal Medical History: Reports Hx Arthritis Infectious Medical History: Past Surgical History: Reports: Hx Orthopedic Surgery - bilateral knee replacement. Denies: Hx Pacemaker - Immunizations Hx Diphtheria, Pertussis, Tetanus Vaccination: Yes Physical Exam - Vital signs Vitals: Temp Pulse Resp BP Pulse Ox 97.8 F 89 18 84/48 L 95 08/05/20 22:25 08/05/20 22:25 08/05/20 22:25 08/05/20 22:25 08/05/20 22:25 - General General appearance: Appears well, Alert - Back Back: No: CVA tenderness Course - Vital Signs Vital signs: Temp Pulse Resp BP Pulse Ox 97.8 F 89 18 78/47 L 95 08/05/20 22:25 08/05/20 22:25 08/05/20 22:25 08/05/20 22:30 08/05/20 22:25 Doctor's Discharge - Discharge Referrals: DIXIE LIND MD [Primary Care Provider] - Follow up as needed
[2020-08-05 23:00] LABS: ABSOLUTE BASOPHILS # (AUTO) 0.1 10^3/uL (0.0-0.2); ABSOLUTE EOSINOPHILS # (AUTO) 0.2 10^3/uL (0.0-0.6); ABSOLUTE LYMPHOCYTES (AUTO) 3.6 10^3/uL (0.5-4.7); ABSOLUTE MONOCYTES (AUTO) 0.5 10^3/uL (0.1-1.4); BASOPHILS % (AUTO) 1.3 % (0-2); EOSINOPHILS % (AUTO) 2.1 % (0-6); HEMOGLOBIN 12.7 g/dL (13.5-17.0); LYMPHOCYTES % (AUTO) 42.8 % (13-45); MEAN CORPUSCULAR HEMOGLOBIN 29.8 pg (27.0-33.4); MEAN CORPUSCULAR HGB CONC 33.5 g/dL (32.0-36.0); MEAN CORPUSCULAR VOLUME 89 fl (80-97); PLATELET COUNT 244 10^3/uL (150-450); RED BLOOD COUNT 4.27 10^6/uL (4.35-5.55); RED CELL DISTRIBUTION WIDTH 14.4 % (11.5-14.0); SEGMENTED NEUTROPHILS % (AUTO) 47.8 % (42-78); TOTAL CELLS COUNTED % (AUTO) 100 %; WHITE BLOOD COUNT 8.4 10^3/uL (4.0-10.5)
[2020-08-05 23:19] LABS: ALBUMIN 4.4 g/dL (3.5-5.0); ALKALINE PHOSPHATASE 52 U/L (38-126); ANION GAP 11 (5-19); ASPARTATE AMINO TRANSFERASE 39 U/L (17-59); BILIRUBIN,DIRECT 0.1 mg/dL (0.0-0.4); BILIRUBIN,TOTAL 0.6 mg/dL (0.2-1.3); BLOOD UREA NITROGEN 33 mg/dL (7-20); CALCIUM 11.3 mg/dL (8.4-10.2); CARBON DIOXIDE 22 mmol/L (22-30); CHLORIDE 105 mmol/L (98-107); GLUCOSE 98 mg/dL (75-110); POTASSIUM 4.2 mmol/L (3.6-5.0); TOTAL PROTEIN 7.1 g/dL (6.3-8.2)
[2020-08-06] MEDS ORDERED: NORMAL SALINE IV ONE (00:02)
[2020-08-06 00:15] LABS: VENOUS BLOOD BASE EXCESS -5.1 mmol/L; VENOUS BLOOD HCO3 21.9 mmol/L (20-32); VENOUS BLOOD PCO2 47.9 mmHg (35-63); VENOUS BLOOD PH 7.28 (7.30-7.42)
[2020-08-06 00:21] LABS: INTERNATIONAL RATION (INR) 1.04; PROTHROMBIN TIME 13.8 SEC (11.4-15.4)
--- NOTE | 2020-08-06 00:25 | RADIOLOGY REPORT (SQ) ---
EXAM DESCRIPTION: Site: CHEST SINGLE VIEW RP: XR CHEST 1 VIEW CLINICAL HISTORY: 60 years Male; cp; COMPARISON: 11/13/2016 FINDINGS: Lungs: Lungs are clear, with no focal infiltrate, pneumothorax, or pleural effusion. Mediastinum: Mediastinum is within normal limits for this positioning. Bones: Bony structures are unremarkable. IMPRESSION: 1. No acute pulmonary findings.
[2020-08-06 00:44] LABS: APPEARANCE,URINE CLEAR; BILIRUBIN,URINE NEGATIVE (NEGATIVE); COLOR,URINE YELLOW; GLUCOSE, URINE NEGATIVE (NEGATIVE); KETONES,URINE NEGATIVE (NEGATIVE); LEUKOCYTE ESTERASE,URINE NEGATIVE (NEGATIVE); NITRITE,URINE NEGATIVE (NEGATIVE); PROTEIN,URINE NEGATIVE (NEGATIVE); URINE SPECIFIC GRAVITY 1.015; UROBILINOGEN,URINE NEGATIVE mg/dL (<2.0)
[2020-08-06] MEDS ORDERED: PIPERACILLIN/TAZOBACTAM 4.5 GM VIAL IV ONE (00:45)
--- NOTE | 2020-08-06 02:39 | ER Document Report ---
ED General - General Chief Complaint: Urinary Incontinence Stated Complaint: URINATING ISSUE,URINATED ON SELF Time Seen by Provider: 08/05/20 22:26 TRAVEL OUTSIDE OF THE [place] IN LAST 30 DAYS: No - HPI Context: Chief Complaint: [Chills, urinary incontinence] [This is a 60-year-old male with a history of hypertension, BPH, degenerative disc disease and diabetes presenting to the emergency department complaining of 4 days of chills and a episode of incontinence of urine earlier tonight. Patient states he takes Flomax daily and has been compliant with that medication. Patient denies fever, cough, shortness of breath, nausea, vomiting, abdominal pain. Patient states he does have some low back pain but he is not sure if it is related to his chronic back pain or if it could be coming from his kidneys. Patient states that he had a rapid Covid test done 2 days ago that was negative. Patient denies loss of sense of smell or sense of taste. ] History obtained from [patient] Symptoms began:[Chills began 4 days ago, urinary incontinence occurred earlier tonight] Onset: [Onset of chills was gradual, urinary incontinence was sudden] Timing: [Timing chills is gradual urinary incontinence with sudden] Quality: [Patient denies having myalgias or dysuria] Intensity: [0 out of 5] Location: [Chills or diffuse, incontinence was involving the urinary tract] Radiation: [Denies] [The pain does not migrate to a new location.] Aggravating factors: [none] Relieving factors: [none] [Denies] SOB [Denies] nausea [Denies] vomiting [Denies] sweats [Denies] fever [Denies] cough [Denies] calf or leg swelling or pain - Related Data Allergies/Adverse Reactions: chlorzoxazone [From Parafon Forte] Allergy (Severe, Verified 11/03/19 19:04) Face swelled, couldn't breathe oxycodone HCl [From Percocet] Allergy (Unknown, Verified 11/03/19 19:04) Past Medical History - General Information source: Patient - Social History Smoking Status: Current Some Day Smoker Chew tobacco use (# tins/day): No Frequency of alcohol use: Heavy Drug Abuse: None Family History: Reviewed & Not Pertinent Patient has homicidal ideation: No - Past Medical History Cardiac Medical History: Reports: Hx Hypercholesterolemia, Hx Hypertension, Hx Heart Murmur Denies: Hx Congestive Heart Failure, Hx Coronary Artery Disease, Hx Heart Attack Pulmonary Medical History: Reports: Hx Asthma - As a child, Hx COPD, Hx Pneumonia, Hx Sleep Apnea Denies: Hx Bronchitis Neurological Medical History: Denies: Hx Cerebrovascular Accident, Hx Seizures Endocrine Medical History: Reports: Hx Diabetes Mellitus Type 2 Renal/ Medical History: Denies: Hx Peritoneal Dialysis GI Medical History: Reports: Hx Hiatal Hernia Musculoskeletal Medical History: Reports Hx Arthritis Infectious Medical History: Past Surgical History: Reports: Hx Orthopedic Surgery - bilateral knee replacement. Denies: Hx Pacemaker - Immunizations Hx Diphtheria, Pertussis, Tetanus Vaccination: Yes Hx Pneumococcal Vaccination: 05/26/10 Review of Systems - Review of Systems Notes: Review of systems as below unless otherwise stated in HPI. CONSTITUTIONAL [No] fever, positive chills. EYES [No] eye pain. ENT [No] URI symptoms, [No] sore throat, [No] ear pain. CARDIOVASCULAR [No] chest pain, [No] palpitations, [No] edema. RESPIRATORY [No] Cough, [No] SOB, [No] wheezing. GASTROINTESTINAL [No] abdominal pain, [No] nausea, [No] Diarrhea, [No] Vomiting, [No] constipation, [No] melena, [No] rectal bleeding. GENITOURINARY [No] dysuria, [No] urinary frequency, [No] hematuria, [No] urinary urgency, positive urinary incontinence MUSCULOSKELETAL [No] Back pain. SKIN [No] Rash. NEUROLOGIC [No] Headache, [No] recent seizures, [No] paralysis,[No] parathesias. ENDOCRINE [No] polyuria. HEMO/LYMPATIC [No] easy brusing PSYCHIATRIC [No] depression. Physical Exam - Vital signs Vitals: Temp Pulse Resp BP Pulse Ox 97.8 F 89 18 84/48 L 95 08/05/20 22:25 08/05/20 22:25 08/05/20 22:25 08/05/20 22:25 08/05/20 22:25 - Notes Notes: CONSTITUTIONAL [Vital signs reviewed, Patient appears to be in no acute distress, Alert and oriented X 3, Normal stature.] HEAD [Atraumatic, Normocephalic.] EYES [Eyes are normal to inspection, No discharge from eyes, Extraocular muscles intact, Sclera are normal, Conjunctiva are normal.] ENT [External ears normal to inspection, Nose examination normal, Mouth normal to inspection.] NECK [Normal ROM, No jugular venous distention, No meningeal signs, ] RESPIRATORY CHEST [Chest is nontender, Breath sounds normal, No respiratory distress.] CARDIOVASCULAR [RRR, No murmurs, Normal S1 S2, No rub, No gallop.] ABDOMEN [Abdomen is nontender, No pulsatile masses, No other masses, Bowel sounds normal, No distension, No peritoneal signs, No hernias.] BACK [There is no CVA Tenderness, There is no tenderness to palpation, Normal inspection.] UPPER EXTREMITY [Inspection normal, No cyanosis, No clubbing, No edema, LOWER EXTREMITY [Inspection normal, No cyanosis, No clubbing, No edema, No calf tenderness, NEURO [No focal motor deficits, No focal sensory deficits, Speech normal.] SKIN [Skin is warm, Skin is dry, Skin is normal color.] PSYCHIATRIC [Normal affect. ] Course - Re-evaluation Re-evalutation: 08/06/20 02:40 Results of ED MSE discussed with patient. All questions were answered. Recommendation for admission discussed with patient. Patient states he was agre eable to this. Please note that clinical decision making for this patient was made during the 2019 pandemic of the novel coronavirus which caused the significant strain on the healthcare system including at this particular facility. Criteria for admission, discharge and level of care decisions as well as treatment decisions have necessarily changed. - Vital Signs Vital signs: Temp Pulse Resp BP Pulse Ox 97.5 F 78 24 H 102/65 96 08/06/20 03:05 08/06/20 05:27 08/06/20 05:01 08/06/20 05:01 08/06/20 05:01 - Laboratory Results Result Diagrams: 08/05/20 22:48 08/05/20 22:48 Laboratory Results Interpreted: 08/05/20 08/05/20 08/05/20 22:48 22:48 23:00 RBC 4.27 L Hgb 12.7 L RDW 14.4 H VBG pH BUN 33 H Creatinine 1.61 H Est GFR ( Amer) 54 L Est GFR (MDRD) Non-Af 44 L Lactic Acid 3.3 H Calcium 11.3 H Urine Blood 08/05/20 08/06/20 23:45 00:25 RBC Hgb RDW VBG pH 7.28 L BUN Creatinine Est GFR ( Amer) Est GFR (MDRD) Non-Af Lactic Acid Calcium Urine Blood SMALL H Critical Laboratory Results Reviewed: Yes - Lactic acid is 3.3 Attending or Supervising Physician who Reviewed Labs: MARGARET MARTIN IV - Radiology Results Critical Radiology Results Reviewed: No Critical Results Attending or Supervising Physician who Reviewed Radiology: MARGARET MARTIN IV - EKG Interpretation by Me Additional EKG results interpreted by me: 08/06/20 02:43 EKG obtained on 08/05/2020 at 2244 hrs. was interpreted by this MD. Findings: Normal sinus rhythm, rate 88, normal axis, TX interval is within normal limits, P waves proceed QRS complexes, QRS complexes appear narrow, QTC is 446, there are no obvious patterns of ST segment elevation, depression or reciprocal changes seen to suggest acute myocardial ischemia or infarction. When compared with prior EKG from 11/13/2016 the gross morphology of the 2 EKGs appears very similar and no significant changes noted. Impression normal sinus rhythm with nonspecific ST segments. - Consults Dr. Gilliland Time consulted: 02:30 - Darshana ordered the patient admitted to [facility] for sepsis Reason for consultation: 08/06/20 02:45 Hypertension, elevated lactic acid Critical Care Note - Critical Care Note Total time excluding time spent on procedures (mins): 120 - management of septic patient Discharge - Discharge Clinical Impression: Sepsis Qualifiers: Sepsis type: sepsis due to unspecified organism Sepsis acute organ dysfunction status: unspecified Qualified Code(s): A41.9 - Sepsis, unspecified organism Condition: Stable Disposition: ADMITTED INPATIENT Admitting Provider: Darshana Unit Admitted: [facility]
[2020-08-06] MEDS ORDERED: ACETAMINOPHEN 325 MG TABLET PO PRN (06:03)
[2020-08-06] MEDS ORDERED: DEXTROSE 40% GEL 15 GM TUBE X 2 PO PRN (06:30)
[2020-08-06] MEDS ORDERED: GLUCAGON,HUMAN RECOMB 1 MG INJ IM PRN (06:30)
[2020-08-06] MEDS ORDERED: DEXTROSE 40% GEL 15 GM TUBE PO PRN (06:30)
[2020-08-06] MEDS ORDERED: DEXTROSE 50%-WATER SYRINGE 25 GM/50 ML DOSE IV PRN (06:30)
[2020-08-06] MEDS ORDERED: DEXTROSE 50%-WATER SYRINGE 12.5 GM/25 ML DOSE IV PRN (06:30)
[2020-08-06] MEDS: NORMAL SALINE 1000 ML 1,000 ML IV PRN ×2 (06:35→19:08)
[2020-08-06] MEDS: PANTOPRAZOLE SODIUM 40 MG TABLET.DR PO SCH (06:35)
[2020-08-06] MEDS: INSULIN LISPRO 100 UNIT/ML 3 ML VIAL SUBCUT SCH ×4 (09:31→22:05)
[2020-08-06] MEDS: PIPERACILLIN SODIUM/TAZOBACTAM 3.375 GM in NORMAL SALINE 100 ML IV SCH ×2 (09:59→17:14)
[2020-08-06] MEDS ORDERED: ALBUTEROL SULFATE HFA (90 MCG/PUFF) 8 GM MDI (1 MDI/ER DISP) IH PRN (12:58)
--- NOTE | 2020-08-06 12:58 | PDOC H&P ---
History of Present Illness Admission Date/PCP: 08/06/20 04:33 [facility] History of Present Illness: ROSALIO HOWELL is a 60 year old male patient known to my practice who presented to the ED with new onset urinary incontinence.Patient reported taht her had episodes of chills and diarrhea over last 3 days prior to his presentation and experience uncontrolled loss of his urine prior to presenting to the ED. He denied any associated definite fever, flank pain, hematuria or dysuria. he admitted to cloudy and malodor urine. Patient has history of BPH with LUTS but reported compliance with his medication. He denied any recent instrumentation. He reported frequent diarrhea which he related to use of Metformin for his diabetes mellitus management. He denied any nausea, vomiting o r abdominal pain. He reported tested negative for COVID-19 two days prior to his presentation and denied exposure to anybody that is acutely ill or travel outside of the [place] [facility] [place]. His initial ED evaluation was significant for severe hypotension, ARIC feature and elevated serum lactic acid level suggestive of SIRS. He responded to vigorous IV fluid resuscitation therapy. He was advised hospitalization for further evaluation and management. His morbidities are as listed below. Past Medical History Cardiac Medical History: Reports: Hyperlipidema, Hypertension, Heart Murmur Denies: Congestive Heart Failure, Coronary Artery Disease, Myocardial Infarction Pulmonary Medical History: Reports: Asthma - As a child, Chronic Obstructive P ulmonary Disease (COPD), Pneumonia, Sleep Apnea Denies: Bronchitis Neurological Medical History: Denies: Seizures Endocrine Medical History: Reports: Diabetes Mellitus Type 2 GI Medical History: Reports: Hiatal Hernia Musculoskeltal Medical History: Reports: Arthritis Psychiatric Medical History: Denies: Depression Hematology: Denies: Anemia Past Surgical History Past Surgical History: Reports: Orthopedic Surgery - bilateral knee replacement Denies: Pacemaker Social History Smoking Status: Current Some Day Smoker Electronic Cigarette use?: No Frequency of Alcohol Use: Rare Hx Recreational Drug Use: No Drugs: None Hx Prescription Drug Abuse: No - Advance Directive Resuscitation Status: Full Code Family History Family History: Reviewed & Not Pertinent Parental Family History Reviewed: Yes Children Family History Reviewed: Yes Sibling(s) Family History Reviewed.: Yes Medication/Allergy Home Medications: Aspirin [Aspirin EC] 162 mg PO DAILY 11/14/16 Glipizide [Glucotrol 10 mg Tablet] 10 mg PO BID 11/14/16 Metformin HCl [Glucophage] 500 mg PO DAILY 11/14/16 Tamsulosin HCl [Flomax 0.4 mg Cap.sr] 0.4 mg PO DAILY 11/14/16 Albuterol Sulfate [Proair HFA Inhalation Aerosol 8.5 gm MDI] 2 puff PO Q4HP PRN 08/06/20 Budesonide/Formoterol Fumarate [Symbicort Hfa 160-4.5 Mcg Inhaler 6 gm] 1 puff IH Q12 08/06/20 Latanoprost [Xalatan] 1 drop OP QHS 08/06/20 Lisinopril/Hydrochlorothiazide [Lisinopril-Hctz 20-12.5 mg Tab] 2 each PO DAILY 08/06/20 Metoprolol Succinate 50 mg PO DAILY 08/06/20 [place]-3 Fatty Acids [[place]-3] 2,000 mg PO BID 08/06/20 Allergies/Adverse Reactions: chlorzoxazone [From Parafon Forte] Allergy (Severe, Verified 11/03/19 19:04) Face swelled, couldn't breathe oxycodone HCl [From Percocet] Allergy (Unknown, Verified 11/03/19 19:04) Review of Systems Constitutional: PRESENT: chills. ABSENT: fever(s), headache(s) Eyes: ABSENT: visual disturbances Ears: ABSENT: hearing changes Nose, Mouth, and Throat: ABSENT: headache(s) Cardiovascular: ABSENT: chest pain, dyspnea on exertion, edema, orthropnea, palpitations Respiratory: ABSENT: cough, hemoptysis Gastrointestinal: ABSENT: abdominal pain, constipation, diarrhea, hematemesis, hematochezia, nausea, vomiting Genitourinary: PRESENT: other - sudden onset urinary incontinence. ABSENT: dysuria, hematuria Musculoskeletal: ABSENT: joint swelling Integumentary: ABSENT: rash, wounds Neurological: ABSENT: abnormal gait, abnormal speech, confusion, dizziness, focal weakness, syncope Psychiatric: ABSENT: anxiety, depression, homidical ideation, suicidal ideation Endocrine: ABSENT: cold intolerance, heat intolerance, polydipsia, polyuria Hematologic/Lymphatic: ABSENT: easy bleeding, easy bruising, lymphadenopathy Allergic/Immunologic: ABSENT: seasonal rhinorrhea Physical Exam Vital Signs: Temp Pulse Resp BP Pulse Ox 97.9 F 79 18 102/45 L 96 08/06/20 08:01 08/06/20 08:01 08/06/20 08:01 08/06/20 08:01 08/06/20 08:01 Intake & Output 08/05/20 08/06/20 08/07/20 06:59 06:59 06:59 Intake Total 4090 Output Total 200 Balance 3890 Weight 101.2 kg General appearance: PRESENT: no acute distress, obese Head exam: PRESENT: atraumatic, normocephalic Eye exam: PRESENT: conjunctiva pink, EOMI, PERRLA. ABSENT: scleral icterus Ear exam: PRESENT: normal external ear exam Mouth exam: PRESENT: moist, tongue midline Neck exam: PRESENT: full ROM. ABSENT: carotid bruit, JVD, lymphadenopathy, thyromegaly Respiratory exam: PRESENT: clear to auscultation leeann Cardiovascular exam: PRESENT: RRR, +S1, +S2. ABSENT: diastolic murmur, rubs, systolic murmur Pulses: PRESENT: normal dorsalis pedis pul, +2 pedal pulses bilateral Vascular exam: PRESENT: normal capillary refill. ABSENT: pallor GI/Abdominal exam: PRESENT: normal bowel sounds, soft. ABSENT: distended, guarding, mass, organolmegaly, rebound, tenderness Rectal exam: PRESENT: deferred Extremities exam: ABSENT: pedal edema Neurological exam: PRESENT: alert, awake, oriented to person, oriented to place, oriented to time, oriented to situation, CN II-XII grossly intact. ABSENT: motor sensory deficit Psychiatric exam: PRESENT: appropriate affect, normal mood. ABSENT: homicidal ideation, suicidal ideation Skin exam: PRESENT: dry, intact, warm. ABSENT: cyanosis, rash Results Laboratory Results: 08/05/20 22:48 08/05/20 22:48 08/05/20 08/05/20 08/05/20 22:48 22:48 23:00 WBC 8.4 RBC 4.27 L Hgb 12.7 L Hct 38.0 MCV 89 MCH 29.8 MCHC 33.5 RDW 14.4 H Plt Count 244 Seg Neutrophils % 47.8 VBG pH Cancelled VBG pCO2 Cancelled VBG HCO3 Cancelled VBG Base Excess Cancelled Sodium 137.9 Potassium 4.2 Chloride 105 Carbon Dioxide 22 Anion Gap 11 BUN 33 H Creatinine 1.61 H Est GFR ( Amer) 54 L Glucose 98 Lactic Acid Calcium 11.3 H Total Bilirubin 0.6 AST 39 Alkaline Phosphatase 52 Total Protein 7.1 Albumin 4.4 Urine Color Urine Appearance Urine pH Ur Specific [place] Urine Protein Urine Glucose (UA) Urine Ketones Urine Blood Urine Nitrite Ur Leukocyte Esterase Urine WBC (Auto) Urine RBC (Auto) 08/05/20 08/05/20 08/06/20 23:00 23:45 00:25 WBC RBC Hgb Hct MCV MCH MCHC RDW Plt Count Seg Neutrophils % VBG pH 7.28 L VBG pCO2 47.9 VBG HCO3 21.9 VBG Base Excess -5.1 Sodium Potassium Chloride Carbon Dioxide Anion Gap BUN Creatinine Est GFR ( Amer) Glucose Lactic Acid 3.3 H Calcium Total Bilirubin AST Alkaline Phosphatase Total Protein Albumin Urine Color YELLOW Urine Appearance CLEAR Urine pH 5.0 Ur Specific [place] 1.015 Urine Protein NEGATIVE Urine Glucose (UA) NEGATIVE Urine Ketones NEGATIVE Urine Blood SMALL H Urine Nitrite NEGATIVE Ur Leukocyte Esterase NEGATIVE Urine WBC (Auto) 1 Urine RBC (Auto) 9 08/06/20 08/06/20 01:58 04:59 WBC RBC Hgb Hct MCV MCH MCHC RDW Plt Count Seg Neutrophils % VBG pH VBG pCO2 VBG HCO3 VBG Base Excess Sodium Potassium Chloride Carbon Dioxide Anion Gap BUN Creatinine Est GFR ( Amer) Glucose Lactic Acid 1.7 2.5 H Calcium Total Bilirubin AST Alkaline Phosphatase Total Protein Albumin Urine Color Urine Appearance Urine pH Ur Specific [place] Urine Protein Urine Glucose (UA) Urine Ketones Urine Blood Urine Nitrite Ur Leukocyte Esterase Urine WBC (Auto) Urine RBC (Auto) 08/05/20 22:48 Troponin I < 0.012 Impressions: Chest X-Ray 08/05/20 23:30 IMPRESSION: 1. No acute pulmonary findings. Assessment & Plan - Diagnosis (1) SIRS (systemic inflammatory response syndrome) Is this a current diagnosis for this admission?: Yes Plan: See admitting attending physician orders for details about care plan. (2) Probable sepsis Is this a current diagnosis for this admission?: Yes Plan: See admitting attending physician orders for details about care plan. (3) ARIC (acute kidney injury) Is this a current diagnosis for this admission?: Yes Plan: See admitting attending physician orders for details about care plan. (4) Diabetes mellitus type 2 in obese Is this a current diagnosis for this admission?: Yes Plan: See admitting attending physician orders for details about care plan. (5) HTN (hypertension) Qualifiers: Hypertension type: essential hypertension Qualified Code(s): I10 - Essential (primary) hypertension Is this a current diagnosis for this admission?: Yes Plan: See admitting attending physician orders for details about care plan. (6) HLD (hyperlipidemia) Qualifiers: Hyperlipidemia type: pure hypercholesterolemia Qualified Code(s): E78.00 - Pure hypercholesterolemia, unspecified Is this a current diagnosis for this admission?: Yes Plan: See admitting attending physician orders for details about care plan. (7) GERD (gastroesophageal reflux disease) Qualifiers: Esophagitis presence: without esophagitis Qualified Code(s): K21.9 - Gastro-esophageal reflux disease without esophagitis Is this a current diagnosis for this admission?: Yes Plan: See admitting attending physician orders for details about care plan. - Time Time Spent: 50 to 70 Minutes Medications reviewed and adjusted accordingly: Yes Anticipated Discharge Disposition: Home, Self Care Anticipated Discharge Timeframe: within 72 hours - Inpatient Certification Based on my medical assessment, after consideration of the patient's comorbidities, presenting symptoms, or acuity I expect that the services needed warrant INPATIENT care.: Yes I certify that my determination is in accordance with my understanding of Medicare's requirements for reasonable and necessary INPATIENT services [42 CFR 412.3e].: Yes Medical Necessity: Significant Comorbidiites Make Outpatient Treatment Too Risky, Need Close Monitoring Due to Risk of Patient Decompensation, Need For IV Fluids, Need For Continuous Telemetry Monitoring, Need for IV Antibiotics, Risk of Complication if Not Cared For in Hospital, Risk of Diagnosis Which Will Require Inpatient Eval/Care/Monitoring Post Hospital Care: D/C Education Program Specialist Documentation - Plan Summary Plan Summary: See admitting attending physician orders for details about care plan.
[2020-08-06] MEDS ORDERED: ALBUTEROL SULFATE HFA (90 MCG/PUFF) 8 GM MDI IH PRN (13:04)
[2020-08-06] MEDS: ENOXAPARIN SODIUM INJ 40 MG/0.4 ML DISP.SYRIN SUBCUT SCH (13:58)
--- NOTE | 2020-08-06 15:00 | EKG REPORT ---
SEVERITY:- ABNORMAL ECG - SINUS RHYTHM NONSPECIFIC T ABNORMALITIES, LATERAL LEADS : Confirmed by: Karla Galdamez 06-Aug-2020 14:59:25
[2020-08-06] MEDS: TAMSULOSIN HCL 0.4 MG CAP.SR.24H PO SCH (17:13)
[2020-08-06] MEDS: GLIPIZIDE 10 MG TABLET PO SCH (17:13)
[2020-08-06] MEDS: OMEGA-3 ACID ETHYL ESTERS 1 GM CAPSULE PO SCH (17:13)
[2020-08-06] MEDS ORDERED: FATTY ACIDS PO SCH (18:00)
[2020-08-06] MEDS ORDERED: OMEGA PO SCH (18:00)
[2020-08-06] MEDS ORDERED: (PENDING PHARMACY ID) (Budesonide/Formoterol Fumarate 60 PUFF/6 GM Inhaler) IH SCH (22:00)
[2020-08-06] MEDS: LATANOPROST 0.005% OPH SOLN 2.5 ML OU SCH (22:05)
[2020-08-07] MEDS: PIPERACILLIN SODIUM/TAZOBACTAM 3.375 GM in NORMAL SALINE 100 ML IV SCH ×3 (01:43→18:07)
[2020-08-07] MEDS: NORMAL SALINE 1000 ML 1,000 ML IV PRN ×2 (05:05→15:06)
[2020-08-07] MEDS: PANTOPRAZOLE SODIUM 40 MG TABLET.DR PO SCH (05:09)
[2020-08-07 05:41] LABS: ABSOLUTE EOSINOPHILS # (AUTO) 0.1 10^3/uL (0.0-0.6); ABSOLUTE LYMPHOCYTES (AUTO) 2.3 10^3/uL (0.5-4.7); ABSOLUTE MONOCYTES (AUTO) 0.5 10^3/uL (0.1-1.4); BASOPHILS % (AUTO) 0.4 % (0-2); EOSINOPHILS % (AUTO) 2.3 % (0-6); HEMOGLOBIN 11.4 g/dL (13.5-17.0); MEAN CORPUSCULAR HEMOGLOBIN 29.6 pg (27.0-33.4); MEAN CORPUSCULAR HGB CONC 33.6 g/dL (32.0-36.0); MEAN CORPUSCULAR VOLUME 88 fl (80-97); MONOCYTES % (AUTO) 7.6 % (3-13); PLATELET COUNT 193 10^3/uL (150-450); RED BLOOD COUNT 3.86 10^6/uL (4.35-5.55); RED CELL DISTRIBUTION WIDTH 14.7 % (11.5-14.0); SEGMENTED NEUTROPHILS % (AUTO) 50.7 % (42-78); TOTAL CELLS COUNTED % (AUTO) 100 %
[2020-08-07 06:20] LABS: BLOOD UREA NITROGEN 15 mg/dL (7-20); CALCIUM 8.7 mg/dL (8.4-10.2); CARBON DIOXIDE 23 mmol/L (22-30); CHLORIDE 108 mmol/L (98-107); GLUCOSE 96 mg/dL (75-110); POTASSIUM 3.9 mmol/L (3.6-5.0)
[2020-08-07 06:21] LABS: ALBUMIN 3.3 g/dL (3.5-5.0); ALKALINE PHOSPHATASE 44 U/L (38-126); ANION GAP 8 (5-19); ASPARTATE AMINO TRANSFERASE 26 U/L (17-59); BILIRUBIN,DIRECT 0.1 mg/dL (0.0-0.4); BILIRUBIN,TOTAL 0.7 mg/dL (0.2-1.3); TOTAL PROTEIN 5.7 g/dL (6.3-8.2)
[2020-08-07] MEDS ORDERED: INFLUENZA QUAD (6MOS+) 2020-21 VAC 0.5 ML SYR IM ONE (08:00)
[2020-08-07] MEDS: INSULIN LISPRO 100 UNIT/ML 3 ML VIAL SUBCUT SCH ×4 (08:55→21:51)
[2020-08-07] MEDS: OMEGA-3 ACID ETHYL ESTERS 1 GM CAPSULE PO SCH ×2 (10:00→18:07)
[2020-08-07] MEDS: GLIPIZIDE 10 MG TABLET PO SCH ×2 (10:00→18:07)
[2020-08-07] MEDS: ASPIRIN 81 MG TABLET, ENT COATED PO SCH (10:00)
[2020-08-07] MEDS ORDERED: (PENDING PHARMACY ID) (Metoprolol Succinate [Metoprolol Succinate] 100 MG Tab.Er.24h) PO SCH (10:00)
[2020-08-07] MEDS: METOPROLOL SUCCINATE 50 MG TAB.SR.24H PO SCH (10:01)
[2020-08-07] MEDS: ENOXAPARIN SODIUM INJ 40 MG/0.4 ML DISP.SYRIN SUBCUT SCH (10:01)
[2020-08-07] MEDS: METFORMIN HCL 500 MG TABLET PO SCH (10:01)
[2020-08-07] MEDS: FLUTICASONE/VILANTEROL 200-25 MCG/DOSE IH SCH (10:01)
--- NOTE | 2020-08-07 16:43 | PDOC PROGRESS REPORT ---
Subjective Date:: 08/07/20 Subjective:: Patient denied any chest pain or difficulty with breathing. No recurrent urinary incontinence since admission. Blood pressure has been better. No nausea, vomiting or abdominal pain. Cultures remain no growth to date. Reason For Visit: SIRS; PROBABLY SEPSIS; ARIC; DMT2; HTN; HLD; BPH Physical Exam Vital Signs: Temp Pulse Resp BP Pulse Ox 97.8 F 75 19 128/67 H 98 08/07/20 10:00 08/07/20 14:00 08/07/20 08:16 08/07/20 08:16 08/07/20 08:16 Intake & Output 08/06/20 08/07/20 08/08/20 06:59 06:59 06:59 Intake Total 4090 2825 Output Total 200 2150 Balance 3890 675 Weight 101.2 kg 100.5 kg Results Laboratory Results: 08/07/20 04:54 08/07/20 04:54 08/07/20 08/07/20 08/07/20 04:54 04:54 04:54 WBC 6.0 RBC 3.86 L Hgb 11.4 L Hct 34.0 L MCV 88 MCH 29.6 MCHC 33.6 RDW 14.7 H Plt Count 193 Seg Neutrophils % 50.7 Sodium 138.6 Potassium 3.9 Chloride 108 H Carbon Dioxide 23 Anion Gap 8 BUN 15 Creatinine 1.07 Est GFR ( Amer) > 60 Glucose 96 Lactic Acid 0.7 Calcium 8.7 Total Bilirubin 0.7 AST 26 Alkaline Phosphatase 44 Total Protein 5.7 L Albumin 3.3 L 08/05/20 22:48 Troponin I < 0.012 Impressions: Chest X-Ray 08/05/20 23:30 IMPRESSION: 1. No acute pulmonary findings. Assessment & Plan - Diagnosis (1) SIRS (systemic inflammatory response syndrome) Is this a current diagnosis for this admission?: Yes (2) Probable sepsis Is this a current diagnosis for this admission?: Yes (3) ARIC (acute kidney injury) Is this a current diagnosis for this admission?: Yes (4) Diabetes mellitus type 2 in obese Is this a current diagnosis for this admission?: Yes (5) HTN (hypertension) Qualifiers: Hypertension type: essential hypertension Qualified Code(s): I10 - Essential (primary) hypertension Is this a current diagnosis for this admission?: Yes (6) HLD (hyperlipidemia) Qualifiers: Hyperlipidemia type: pure hypercholesterolemia Qualified Code(s): E78.00 - Pure hypercholesterolemia, unspecified Is this a current diagnosis for this admission?: Yes (7) GERD (gastroesophageal reflux disease) Qualifiers: Esophagitis presence: without esophagitis Qualified Code(s): K21.9 - Gastro-esophageal reflux disease without esophagitis Is this a current diagnosis for this admission?: Yes - Time Time Spent with patient: 25-34 minutes Level of Care: IMCU Medications reviewed and adjusted accordingly: Yes Anticipated discharge: Home Anticipated DC Timeframe: within 72 hours - Inpatient Certification Based on my medical assessment, after consideration of the patient's comorbidities, presenting symptoms, or acuity I expect that the services needed warrant INPATIENT care.: Yes I certify that my determination is in accordance with my understanding of Medicare's requirements for reasonable and necessary INPATIENT services [42 CFR 412.3e].: Yes Medical Necessity: Significant Comorbidiites Make Outpatient Treatment Too Risky, Need Close Monitoring Due to Risk of Patient Decompensation, Need For IV Fluids, Need For Continuous Telemetry Monitoring, Need for IV Antibiotics, Risk of Complication if Not Cared For in Hospital, Risk of Diagnosis Which Will Require Inpatient Eval/Care/Monitoring Post Hospital Care: D/C Cyber Systems Engineer Documentation - Plan Summary Plan Summary: continue current medication management. Follow up on culture findings.
[2020-08-07] MEDS: TAMSULOSIN HCL 0.4 MG CAP.SR.24H PO SCH (18:07)
[2020-08-07] MEDS: LATANOPROST 0.005% OPH SOLN 2.5 ML OU SCH (21:52)
[2020-08-08] MEDS: NORMAL SALINE 1000 ML 1,000 ML IV PRN ×3 (00:20→22:20)
[2020-08-08] MEDS: PIPERACILLIN SODIUM/TAZOBACTAM 3.375 GM in NORMAL SALINE 100 ML IV SCH ×3 (01:17→17:51)
[2020-08-08] MEDS: PANTOPRAZOLE SODIUM 40 MG TABLET.DR PO SCH (06:08)
[2020-08-08] MEDS: INSULIN LISPRO 100 UNIT/ML 3 ML VIAL SUBCUT SCH ×4 (08:18→21:37)
--- NOTE | 2020-08-08 09:48 | PDOC PROGRESS REPORT ---
Subjective Date:: 08/08/20 Subjective:: No chest pain or difficulty with breathing. No nausea, vomiting or abdominal pain. Cultures remain no growth to date. Reason For Visit: SIRS; PROBABLY SEPSIS; ARIC; DMT2; HTN; HLD; BPH Physical Exam Vital Signs: Temp Pulse Resp BP Pulse Ox 97.8 F 70 24 H 119/69 97 08/08/20 08:52 08/08/20 08:00 08/08/20 08:00 08/08/20 08:00 08/08/20 08:00 Intake & Output 08/07/20 08/08/20 08/09/20 06:59 06:59 06:59 Intake Total 2825 2883 Output Total 2150 3000 Balance 675 -117 Weight 100.5 kg 93.4 kg General appearance: PRESENT: no acute distress, obese Head exam: PRESENT: atraumatic, normocephalic Eye exam: PRESENT: conjunctiva pink. ABSENT: scleral icterus Mouth exam: PRESENT: moist Respiratory exam: PRESENT: clear to auscultation leeann Cardiovascular exam: PRESENT: RRR, +S1, +S2. ABSENT: diastolic murmur, rubs, systolic murmur Vascular exam: ABSENT: pallor GI/Abdominal exam: PRESENT: normal bowel sounds, soft. ABSENT: tenderness Extremities exam: ABSENT: pedal edema Neurological exam: PRESENT: alert, awake, oriented to person, oriented to place, oriented to time, oriented to situation, CN II-XII grossly intact. ABSENT: motor sensory deficit Psychiatric exam: PRESENT: appropriate affect, normal mood. ABSENT: homicidal ideation, suicidal ideation Skin exam: PRESENT: dry, warm Results Laboratory Results: 08/07/20 04:54 08/07/20 04:54 08/06/20 00:25 Clean Catch Midstream Urine Culture - Final 08/05/20 22:48 Troponin I < 0.012 Impressions: Chest X-Ray 08/05/20 23:30 IMPRESSION: 1. No acute pulmonary findings. Assessment & Plan - Diagnosis (1) SIRS (systemic inflammatory response syndrome) Is this a current diagnosis for this admission?: Yes (2) Probable sepsis Is this a current diagnosis for this admission?: Yes (3) ARIC (acute kidney injury) Is this a current diagnosis for this admission?: Yes (4) Diabetes mellitus type 2 in obese Is this a current diagnosis for this admission?: Yes (5) HTN (hypertension) Qualifiers: Hypertension type: essential hypertension Qualified Code(s): I10 - Essential (primary) hypertension Is this a current diagnosis for this admission?: Yes (6) HLD (hyperlipidemia) Qualifiers: Hyperlipidemia type: pure hypercholesterolemia Qualified Code(s): E78.00 - Pure hypercholesterolemia, unspecified Is this a current diagnosis for this admission?: Yes (7) GERD (gastroesophageal reflux disease) Qualifiers: Esophagitis presence: without esophagitis Qualified Code(s): K21.9 - Gastro-esophageal reflux disease without esophagitis Is this a current diagnosis for this admission?: Yes - Time Time Spent with patient: 25-34 minutes Level of Care: IMCU Medications reviewed and adjusted accordingly: Yes Anticipated discharge: Home Anticipated DC Timeframe: within 72 hours - Inpatient Certification Based on my medical assessment, after consideration of the patient's comorbidities, presenting symptoms, or acuity I expect that the services needed warrant INPATIENT care.: Yes I certify that my determination is in accordance with my understanding of Medicare's requirements for reasonable and necessary INPATIENT services [42 CFR 412.3e].: Yes Medical Necessity: Significant Comorbidiites Make Outpatient Treatment Too Risky, Need Close Monitoring Due to Risk of Patient Decompensation, Need For IV Fluids, Need For Continuous Telemetry Monitoring, Need for IV Antibiotics, Risk of Complication if Not Cared For in Hospital, Risk of Diagnosis Which Will Require Inpatient Eval/Care/Monitoring Post Hospital Care: D/C Therapy Administrative Assistant Documentation - Plan Summary Plan Summary: Continue current medication management. Follow up on culture findings.
[2020-08-08] MEDS: METOPROLOL SUCCINATE 50 MG TAB.SR.24H PO SCH (09:56)
[2020-08-08] MEDS: FLUTICASONE/VILANTEROL 200-25 MCG/DOSE IH SCH (09:56)
[2020-08-08] MEDS: OMEGA-3 ACID ETHYL ESTERS 1 GM CAPSULE PO SCH ×2 (09:57→17:52)
[2020-08-08] MEDS: ASPIRIN 81 MG TABLET, ENT COATED PO SCH (09:57)
[2020-08-08] MEDS: METFORMIN HCL 500 MG TABLET PO SCH (09:57)
[2020-08-08] MEDS: GLIPIZIDE 10 MG TABLET PO SCH ×2 (09:57→17:52)
[2020-08-08] MEDS: ENOXAPARIN SODIUM INJ 40 MG/0.4 ML DISP.SYRIN SUBCUT SCH (09:58)
[2020-08-08] MEDS: TAMSULOSIN HCL 0.4 MG CAP.SR.24H PO SCH (17:52)
[2020-08-08] MEDS: LATANOPROST 0.005% OPH SOLN 2.5 ML OU SCH (21:37)
[2020-08-09] MEDS: PIPERACILLIN SODIUM/TAZOBACTAM 3.375 GM in NORMAL SALINE 100 ML IV SCH ×3 (02:00→17:26)
[2020-08-09] MEDS: PANTOPRAZOLE SODIUM 40 MG TABLET.DR PO SCH (05:29)
[2020-08-09] MEDS: INSULIN LISPRO 100 UNIT/ML 3 ML VIAL SUBCUT SCH ×4 (08:44→22:17)
[2020-08-09] MEDS: NORMAL SALINE 1000 ML 1,000 ML IV PRN ×2 (09:48→20:26)
[2020-08-09] MEDS: ASPIRIN 81 MG TABLET, ENT COATED PO SCH (10:39)
[2020-08-09] MEDS: OMEGA-3 ACID ETHYL ESTERS 1 GM CAPSULE PO SCH ×2 (10:39→17:27)
[2020-08-09] MEDS: METFORMIN HCL 500 MG TABLET PO SCH (10:39)
[2020-08-09] MEDS: GLIPIZIDE 10 MG TABLET PO SCH ×2 (10:39→17:27)
[2020-08-09] MEDS: METOPROLOL SUCCINATE 50 MG TAB.SR.24H PO SCH (10:39)
[2020-08-09] MEDS: FLUTICASONE/VILANTEROL 200-25 MCG/DOSE IH SCH (10:40)
[2020-08-09] MEDS: ENOXAPARIN SODIUM INJ 40 MG/0.4 ML DISP.SYRIN SUBCUT SCH (10:40)
[2020-08-09] MEDS: TAMSULOSIN HCL 0.4 MG CAP.SR.24H PO SCH (17:27)
--- NOTE | 2020-08-09 21:52 | PDOC PROGRESS REPORT ---
Subjective Date:: 08/09/20 Subjective:: Patient seen by the bedside, nurses report no new complaints Reason For Visit: SIRS; PROBABLY SEPSIS; ARIC; DMT2; HTN; HLD; BPH Physical Exam Vital Signs: Temp Pulse Resp BP Pulse Ox 98.2 F 67 16 153/78 H 95 08/09/20 20:48 08/09/20 20:02 08/09/20 20:02 08/09/20 20:02 08/09/20 20:02 Intake & Output 08/08/20 08/09/20 08/10/20 06:59 06:59 06:59 Intake Total 2883 3460 2550 Output Total 3000 3625 1875 Balance -117 -165 675 Weight 93.4 kg 90.8 kg General appearance: PRESENT: no acute distress Eye exam: PRESENT: PERRLA Respiratory exam: PRESENT: clear to auscultation leeann Cardiovascular exam: PRESENT: +S1, +S2 Results Laboratory Results: 08/07/20 04:54 08/07/20 04:54 08/05/20 22:48 Troponin I < 0.012 Impressions: Chest X-Ray 08/05/20 23:30 IMPRESSION: 1. No acute pulmonary findings. Assessment & Plan - Diagnosis (1) Sepsis Qualifiers: Sepsis type: sepsis due to unspecified organism Sepsis acute organ dysfunction status: unspecified Qualified Code(s): A41.9 - Sepsis, unspecified organism Is this a current diagnosis for this admission?: Yes Plan: Patient will continue present treatment (2) ARIC (acute kidney injury) Is this a current diagnosis for this admission?: Yes - Time Time Spent with patient: 25-34 minutes Level of Care: TELE Medications reviewed and adjusted accordingly: Yes Anticipated DC Timeframe: Other
[2020-08-09] MEDS: LATANOPROST 0.005% OPH SOLN 2.5 ML OU SCH (22:17)
[2020-08-10] MEDS: PIPERACILLIN SODIUM/TAZOBACTAM 3.375 GM in NORMAL SALINE 100 ML IV SCH ×3 (01:31→17:27)
[2020-08-10] MEDS: PANTOPRAZOLE SODIUM 40 MG TABLET.DR PO SCH (05:16)
[2020-08-10] MEDS: NORMAL SALINE 1000 ML 1,000 ML IV PRN (05:16)
[2020-08-10] MEDS: INSULIN LISPRO 100 UNIT/ML 3 ML VIAL SUBCUT SCH ×4 (08:02→21:09)
[2020-08-10] MEDS: ENOXAPARIN SODIUM INJ 40 MG/0.4 ML DISP.SYRIN SUBCUT SCH (09:28)
[2020-08-10] MEDS: METFORMIN HCL 500 MG TABLET PO SCH (09:29)
[2020-08-10] MEDS: ASPIRIN 81 MG TABLET, ENT COATED PO SCH (09:29)
[2020-08-10] MEDS: METOPROLOL SUCCINATE 50 MG TAB.SR.24H PO SCH (09:29)
[2020-08-10] MEDS: OMEGA-3 ACID ETHYL ESTERS 1 GM CAPSULE PO SCH ×2 (09:29→17:27)
[2020-08-10] MEDS: GLIPIZIDE 10 MG TABLET PO SCH ×2 (09:30→17:27)
[2020-08-10] MEDS: FLUTICASONE/VILANTEROL 200-25 MCG/DOSE IH SCH (09:30)
[2020-08-10] MEDS: TAMSULOSIN HCL 0.4 MG CAP.SR.24H PO SCH (17:27)
--- NOTE | 2020-08-10 17:54 | PDOC PROGRESS REPORT ---
Subjective Date:: 08/10/20 Subjective:: No chest pain or difficulty with breathing. No nausea, vomiting or abdominal pain. Blood culture is no growth to date. Reason For Visit: SIRS; PROBABLY SEPSIS; ARIC; DMT2; HTN; HLD; BPH Physical Exam Vital Signs: Temp Pulse Resp BP Pulse Ox 97.9 F 63 17 137/77 H 97 08/10/20 15:23 08/10/20 15:23 08/10/20 15:23 08/10/20 15:23 08/10/20 15:23 Intake & Output 08/09/20 08/10/20 08/11/20 06:59 06:59 06:59 Intake Total 3460 3750 600 Output Total 3625 1875 200 Balance -165 1875 400 Weight 90.8 kg 101.4 kg Physical Exam: General appearance: PRESENT: no acute distress, obese Head exam: PRESENT: atraumatic, normocephalic Eye exam: PRESENT: conjunctiva pink. ABSENT: sclera icterus Mouth exam: PRESENT: moist Respiratory exam: PRESENT: clear to auscultation leeann Cardiovascular exam: PRESENT: RRR, +S1, +S2. ABSENT: diastolic murmur, rubs, systolic murmur Vascular exam: ABSENT: pallor GI/Abdominal exam: PRESENT: normal bowel sounds, soft. ABSENT: tenderness Extremities exam: ABSENT: pedal edema Neurological exam: PRESENT: alert, awake, oriented to person, oriented to place, oriented to time, oriented to situation, CN II-XII grossly intact. ABSENT: motor sensory deficit Psychiatric exam: PRESENT: appropriate affect, normal mood. ABSENT: homicidal ideation, suicidal ideation Skin exam: PRESENT: dry, warm Results Laboratory Results: 08/07/20 04:54 08/07/20 04:54 08/05/20 22:48 Troponin I < 0.012 Impressions: Chest X-Ray 08/05/20 23:30 IMPRESSION: 1. No acute pulmonary findings. Assessment & Plan - Diagnosis (1) SIRS (systemic inflammatory response syndrome) Is this a current diagnosis for this admission?: Yes (2) Probable sepsis Is this a current diagnosis for this admission?: Yes (3) ARIC (acute kidney injury) Is this a current diagnosis for this admission?: Yes (4) Diabetes mellitus type 2 in obese Is this a current diagnosis for this admission?: Yes (5) HTN (hypertension) Qualifiers: Hypertension type: essential hypertension Qualified Code(s): I10 - Essential (primary) hypertension Is this a current diagnosis for this admission?: Yes (6) HLD (hyperlipidemia) Qualifiers: Hyperlipidemia type: pure hypercholesterolemia Qualified Code(s): E78.00 - Pure hypercholesterolemia, unspecified Is this a current diagnosis for this admission?: Yes (7) GERD (gastroesophageal reflux disease) Qualifiers: Esophagitis presence: without esophagitis Qualified Code(s): K21.9 - Gastro-esophageal reflux disease without esophagitis Is this a current diagnosis for this admission?: Yes - Time Time Spent with patient: 25-34 minutes Level of Care: IMCU Medications reviewed and adjusted accordingly: Yes Anticipated discharge: Home Anticipated DC Timeframe: within 24 hours - Inpatient Certification Based on my medical assessment, after consideration of the patient's comorbidities, presenting symptoms, or acuity I expect that the services needed warrant INPATIENT care.: Yes I certify that my determination is in accordance with my understanding of Medicare's requirements for reasonable and necessary INPATIENT services [42 CFR 412.3e].: Yes Medical Necessity: Significant Comorbidiites Make Outpatient Treatment Too Risky, Need Close Monitoring Due to Risk of Patient Decompensation, Need For IV Fluids, Need For Continuous Telemetry Monitoring, Need for IV Antibiotics, Risk of Complication if Not Cared For in Hospital, Risk of Diagnosis Which Will Require Inpatient Eval/Care/Monitoring Post Hospital Care: D/C Developing Machine Operator Documentation - Plan Summary Plan Summary: Continue current medication management. Possible d/c home in 24 hour.
[2020-08-10] MEDS: LATANOPROST 0.005% OPH SOLN 2.5 ML OU SCH (21:14)
[2020-08-11] MEDS: PIPERACILLIN SODIUM/TAZOBACTAM 3.375 GM in NORMAL SALINE 100 ML IV SCH ×2 (02:19→09:55)
[2020-08-11] MEDS: PANTOPRAZOLE SODIUM 40 MG TABLET.DR PO SCH (05:14)
[2020-08-11 05:36] LABS: ABSOLUTE BASOPHILS # (AUTO) 0.1 10^3/uL (0.0-0.2); ABSOLUTE EOSINOPHILS # (AUTO) 0.1 10^3/uL (0.0-0.6); ABSOLUTE LYMPHOCYTES (AUTO) 1.9 10^3/uL (0.5-4.7); ABSOLUTE MONOCYTES (AUTO) 0.3 10^3/uL (0.1-1.4); ABSOLUTE NEUT (AUTO) 3.2 10^3/uL (1.7-8.2); BASOPHILS % (AUTO) 0.9 % (0-2); EOSINOPHILS % (AUTO) 2.2 % (0-6); HEMATOCRIT 33.9 % (37.9-51.0); HEMOGLOBIN 11.2 g/dL (13.5-17.0); LYMPHOCYTES % (AUTO) 33.5 % (13-45); MEAN CORPUSCULAR VOLUME 88 fl (80-97); MONOCYTES % (AUTO) 5.7 % (3-13); PLATELET COUNT 183 10^3/uL (150-450); RED BLOOD COUNT 3.87 10^6/uL (4.35-5.55); RED CELL DISTRIBUTION WIDTH 14.5 % (11.5-14.0); SEGMENTED NEUTROPHILS % (AUTO) 57.7 % (42-78); TOTAL CELLS COUNTED % (AUTO) 100 %; WHITE BLOOD COUNT 5.5 10^3/uL (4.0-10.5)
[2020-08-11 05:52] LABS: GLUCOSE 97 mg/dL (75-110)
[2020-08-11 06:03] LABS: ANION GAP 8 (5-19); BLOOD UREA NITROGEN 10 mg/dL (7-20); CARBON DIOXIDE 23 mmol/L (22-30); CHLORIDE 110 mmol/L (98-107)
[2020-08-11] MEDS: INSULIN LISPRO 100 UNIT/ML 3 ML VIAL SUBCUT SCH ×2 (08:23→11:41)
[2020-08-11] MEDS: METFORMIN HCL 500 MG TABLET PO SCH (09:55)
[2020-08-11] MEDS: METOPROLOL SUCCINATE 50 MG TAB.SR.24H PO SCH (09:55)
[2020-08-11] MEDS: GLIPIZIDE 10 MG TABLET PO SCH (09:55)
[2020-08-11] MEDS: ASPIRIN 81 MG TABLET, ENT COATED PO SCH (09:55)
[2020-08-11] MEDS: OMEGA-3 ACID ETHYL ESTERS 1 GM CAPSULE PO SCH (09:55)
[2020-08-11] MEDS: ENOXAPARIN SODIUM INJ 40 MG/0.4 ML DISP.SYRIN SUBCUT SCH (09:55)
[2020-08-11] MEDS: FLUTICASONE/VILANTEROL 200-25 MCG/DOSE IH SCH (09:56)
[2020-08-11 13:02] VITALS: BP 126/59
--- NOTE | 2020-08-11 19:55 | PDOC DISCHARGE SUMMARY ---
Impression - Admit/DC Date/PCP Admission Date/Primary Care Provider: 08/06/20 04:33 DIXIE LIND Discharge Date: 08/11/20 - Discharge Diagnosis (1) SIRS (systemic inflammatory response syndrome) Is this a current diagnosis for this admission?: Yes (2) Probable sepsis Is this a current diagnosis for this admission?: Yes (3) ARIC (acute kidney injury) Is this a current diagnosis for this admission?: Yes (4) Diabetes mellitus type 2 in obese Is this a current diagnosis for this admission?: Yes (5) HTN (hypertension) Is this a current diagnosis for this admission?: Yes (6) HLD (hyperlipidemia) Is this a current diagnosis for this admission?: Yes (7) GERD (gastroesophageal reflux disease) Is this a current diagnosis for this admission?: Yes - Assessment Summary: Patient was admitted for sudden onset loss of bladder control with significant incontinence, severe hypotension, acute kidney injury feature and elevated serum lactic acid level suggestive of SIRS. His blood culture was no growth after 5 days of incubation. He was treated with IV fluid infusion and antibiotic therapy with complete resolution of his presenting symptoms and findings. He will be discharged home today and follow up in the office as instructed upon discharge. - Additional Information Resuscitation Status: Full Code Referrals: DIXIE LIND MD [Primary Care Provider] - 08/17/20 1:00 pm Home Medications: Aspirin [Aspirin EC] 162 mg PO DAILY 11/14/16 Glipizide [Glucotrol 10 mg Tablet] 10 mg PO BID 11/14/16 Metformin HCl [Glucophage] 500 mg PO DAILY 11/14/16 Tamsulosin HCl [Flomax 0.4 mg Cap.sr] 0.4 mg PO DAILY 11/14/16 Albuterol Sulfate [Proair HFA Inhalation Aerosol 8.5 gm MDI] 2 puff PO Q4HP PRN 08/06/20 Budesonide/Formoterol Fumarate [Symbicort HFA 160-4.5 mcg Inhaler 6 gm] 1 puff IH Q12 08/06/20 Latanoprost [Xalatan] 1 drop OP QHS 08/06/20 Lisinopril/Hydrochlorothiazide [Lisinopril-Hctz 20-12.5 mg Tab] 2 each PO DAILY 08/06/20 Metoprolol Succinate 50 mg PO DAILY 08/06/20 Selma-3 Fatty Acids [Selma-3] 2,000 mg PO BID 08/06/20 History of Present Illiness History of Present Illness: ROSALIO HOWELL is a 60 year old male patient known to my practice who presented to the ED with new onset urinary incontinence.Patient reported taht her had episodes of chills and diarrhea over last 3 days prior to his presentation and experience uncontrolled loss of his urine prior to presenting to the ED. He denied any associated definite fever, flank pain, hematuria or dysuria. he admitted to cloudy and malodor urine. Patient has history of BPH with LUTS but reported compliance with his medication. He denied any recent instrumentation. He reported frequent diarrhea which he related to use of Metformin for his diabetes mellitus management. He denied any nausea, vomiting o r abdominal pain. He reported tested negative for COVID-19 two days prior to his presentation and denied exposure to anybody that is acutely ill or travel outside of the critical access hospital. His initial ED evaluation was significant for severe hypotension, ARIC feature and elevated serum lactic acid level suggestive of SIRS. He responded to vigorous IV fluid resuscitation therapy. He was advised hospitalization for further evaluation and management. His morbidities are as listed below. Hospital Course Hospital Course: Patient was admitted for sudden onset loss of bladder control with significant incontinence, severe hypotension, acute kidney injury feature and elevated serum lactic acid level suggestive of SIRS. His blood culture was no growth after 5 days of incubation. He was treated with IV fluid infusion and antibiotic therapy with complete resolution of his presenting symptoms and findings. He will be discharged home today and follow up in the office as instructed upon discharge. Physical Exam Vital Signs: Temp Pulse Resp BP Pulse Ox 98.1 F 69 17 144/69 H 92 08/11/20 11:36 08/11/20 11:36 08/11/20 11:36 08/11/20 11:36 08/11/20 11:36 Intake & Output 08/10/20 08/11/20 08/12/20 06:59 06:59 06:59 Intake Total 3750 1840 Output Total 1875 3000 Balance 1875 -1160 Weight 101.4 kg 90.7 kg General appearance: PRESENT: no acute distress, obese Head exam: PRESENT: atraumatic, normocephalic Eye exam: PRESENT: conjunctiva pink. ABSENT: pallor, sclera icterus Mouth exam: PRESENT: moist Respiratory exam: PRESENT: clear to auscultation leeann Cardiovascular exam: PRESENT: RRR, +S1, +S2. ABSENT: diastolic murmur, rubs, systolic murmur GI/Abdominal exam: PRESENT: normal bowel sounds, soft. ABSENT: tenderness Extremities exam: ABSENT: pedal edema Neurological exam: PRESENT: alert, awake, oriented to person, oriented to place, oriented to time, oriented to situation, CN II-XII grossly intact. ABSENT: motor sensory deficit Psychiatric exam: PRESENT: appropriate affect, normal mood. ABSENT: homicidal ideation, suicidal ideation Skin exam: PRESENT: dry, warm Results Laboratory Results: WBC 5.5 10^3/uL (4.0-10.5) 08/11/20 05:13 RBC 3.87 10^6/uL (4.35-5.55) L 08/11/20 05:13 Hgb 11.2 g/dL (13.5-17.0) L 08/11/20 05:13 Hct 33.9 % (37.9-51.0) L 08/11/20 05:13 MCV 88 fl (80-97) 08/11/20 05:13 MCH 29.0 pg (27.0-33.4) 08/11/20 05:13 MCHC 33.0 g/dL (32.0-36.0) 08/11/20 05:13 RDW 14.5 % (11.5-14.0) H 08/11/20 05:13 Plt Count 183 10^3/uL (150-450) 08/11/20 05:13 Lymph % (Auto) 33.5 % (13-45) 08/11/20 05:13 Riley % (Auto) 5.7 % (3-13) 08/11/20 05:13 Eos % (Auto) 2.2 % (0-6) 08/11/20 05:13 Baso % (Auto) 0.9 % (0-2) 08/11/20 05:13 Absolute Neuts (auto) 3.2 10^3/uL (1.7-8.2) 08/11/20 05:13 Absolute Lymphs (auto) 1.9 10^3/uL (0.5-4.7) 08/11/20 05:13 Absolute Monos (auto) 0.3 10^3/uL (0.1-1.4) 08/11/20 05:13 Absolute Eos (auto) 0.1 10^3/uL (0.0-0.6) 08/11/20 05:13 Absolute Basos (auto) 0.1 10^3/uL (0.0-0.2) 08/11/20 05:13 Seg Neutrophils % 57.7 % (42-78) 08/11/20 05:13 PT Cancelled 08/05/20 22:48 INR Cancelled 08/05/20 22:48 INR (Anticoag Therapy) Cancelled 08/05/20 22:48 VBG pH 7.28 (7.30-7.42) L 08/05/20 23:45 VBG pCO2 47.9 mmHg (35-63) 08/05/20 23:45 VBG HCO3 21.9 mmol/L (20-32) 08/05/20 23:45 VBG Base Excess -5.1 mmol/L 08/05/20 23:45 Sodium 140.8 mmol/L (137-145) 08/11/20 05:13 Potassium 4.0 mmol/L (3.6-5.0) 08/11/20 05:13 Chloride 110 mmol/L (98-107) H 08/11/20 05:13 Carbon Dioxide 23 mmol/L (22-30) 08/11/20 05:13 Anion Gap 8 (5-19) 08/11/20 05:13 BUN 10 mg/dL (7-20) 08/11/20 05:13 Creatinine 1.01 mg/dL (0.52-1.25) 08/11/20 05:13 Est GFR ( Amer) > 60 (>60) 08/11/20 05:13 Est GFR (MDRD) Non-Af > 60 (>60) 08/11/20 05:13 Glucose 97 mg/dL (75-110) 08/11/20 05:13 POC Glucose 117 mg/dL (70-110) H 08/11/20 11:33 Lactic Acid 0.7 mmol/L (0.7-2.1) 08/07/20 04:54 Calcium 9.0 mg/dL (8.4-10.2) 08/11/20 05:13 Total Bilirubin 0.7 mg/dL (0.2-1.3) 08/07/20 04:54 Direct Bilirubin 0.1 mg/dL (0.0-0.4) 08/07/20 04:54 Neonat Total Bilirubin Not Reportable 08/07/20 04:54 Neonat Direct Bilirubin Not Reportable 08/07/20 04:54 Neonat Indirect Bili Not Reportable 08/07/20 04:54 AST 26 U/L (17-59) 08/07/20 04:54 ALT 11 U/L (<50) 08/07/20 04:54 Alkaline Phosphatase 44 U/L (38-126) 08/07/20 04:54 Troponin I < 0.012 ng/mL 08/05/20 22:48 Total Protein 5.7 g/dL (6.3-8.2) L 08/07/20 04:54 Albumin 3.3 g/dL (3.5-5.0) L 08/07/20 04:54 Urine Color YELLOW 08/06/20 00:25 Urine Appearance CLEAR 08/06/20 00:25 Urine pH 5.0 (5.0-9.0) 08/06/20 00:25 Ur Specific [place] 1.015 08/06/20 00:25 Urine Protein NEGATIVE mg/dL (NEGATIVE) 08/06/20 00:25 Urine Glucose (UA) NEGATIVE mg/dL (NEGATIVE) 08/06/20 00:25 Urine Ketones NEGATIVE mg/dL (NEGATIVE) 08/06/20 00:25 Urine Blood SMALL (NEGATIVE) H 08/06/20 00:25 Urine Nitrite NEGATIVE (NEGATIVE) 08/06/20 00:25 Urine Bilirubin NEGATIVE (NEGATIVE) 08/06/20 00:25 Urine Urobilinogen NEGATIVE mg/dL (<2.0) 08/06/20 00:25 Ur Leukocyte Esterase NEGATIVE (NEGATIVE) 08/06/20 00:25 Urine WBC (Auto) 1 /HPF 08/06/20 00:25 Urine RBC (Auto) 9 /HPF 08/06/20 00:25 U Hyaline Cast (Auto) 33 /LPF 08/06/20 00:25 Squamous Epi Cells Auto <1 /HPF 08/06/20 00:25 Urine Mucus (Auto) RARE /LPF 08/06/20 00:25 Urine Ascorbic Acid NEGATIVE (NEGATIVE) 08/06/20 00:25 Influenza A (RT-PCR) NEGATIVE (NEGATIVE) 08/06/20 11:15 Influenza B (RT-PCR) NEGATIVE (NEGATIVE) 08/06/20 11:15 RSV (RT-PCR) NEGATIVE (NEGATIVE) 08/06/20 11:15 SARS-CoV-2 Rap RNA(RT-PCR) NEGATIVE (NEGATIVE) 08/06/20 11:15 08/05/20 22:48 Troponin I < 0.012 Impressions: Chest X-Ray 08/05/20 23:30 IMPRESSION: 1. No acute pulmonary findings. Plan Health Concerns: Uncleared precipitant of his presenting condition but responded to treatment as expected for SIRS. Emphasized compliance with prescribed medication upon discharge. Plan of Treatment: Continue preadmission medication as prescribed. Goals: Reduce readmission risk with close community follow up. Time Spent: Greater than 30 Minutes - I had extensive discussion with patient regarding post acute care plan and expectations during my bedside visit. Stroke Is this a Stroke Patient?: No Acute Heart Failure Is this a Heart Failure Patient?: No
== END 2020-08-11 13:30 | disposition home or self-care (01) | DRG 872 ==
LOC: ER 21:36 → EH 08-06 04:33 → 5 08-06 05:26
PROVIDERS: ADMIT Internal Medicine Geriatric Medicine; ATTEND Internal Medicine Geriatric Medicine
DX: A41.9 Sepsis, unspecified organism (principal); N17.9 Acute kidney failure, unspecified; E11.9 Type 2 diabetes mellitus without complications; E66.9 Obesity, unspecified; I10 Essential (primary) hypertension; E78.5 Hyperlipidemia, unspecified; K21.9 Gastro-esophageal reflux disease without esophagitis; Z79.84 Long term (current) use of oral hypoglycemic drugs; Z79.82 Long term (current) use of aspirin; Z79.899 Other long term (current) drug therapy; N40.1 Benign prostatic hyperplasia with lower urinary tract symptoms; N39.498 Other specified urinary incontinence; R19.7 Diarrhea, unspecified; Z11.59 Encounter for screening for other viral diseases; J44.9 Chronic obstructive pulmonary disease, unspecified; G47.30 Sleep apnea, unspecified; M19.90 Unspecified osteoarthritis, unspecified site; Z96.653 Presence of artificial knee joint, bilateral; F17.200 Nicotine dependence, unspecified, uncomplicated; Z88.6 Allergy status to analgesic agent; Z91.09 Other allergy status, other than to drugs and biological substances
CPT/HCPCS: 36415; 71045; 80048; 80053; 81001; 82803; 82962; 83605; 84484; 85025; 85610; 87040; 87086; 93005; 93010; 96361; 96365; 99285; 0241U; C9803; J1650; J1815; J2543; J3490; J7030; J7050; J7120